=== PATIENT | female | born 1930 | race Caucasian/White ===

== ENCOUNTER 2016-12-02 14:22 | Inpatient (IN) ==
[2016-12-03 06:09] LABS: MANUAL DIFF NEEDED? NO
[2016-12-03 06:10] LABS: BASO% 0.2 % (0.0-0.8); EOS# 0.17 X1000 (0.0-0.7); HEMATOCRIT 30.7 % (37.0-47.0); HEMOGLOBIN 9.8 g/dL (12.0-16.0); IMM GRAN# 0.04 X1000 (0.0-0.04); IMM GRAN% 0.2 % (0.0-0.5); LYMPH# 7.09 X1000 (1.2-3.4); LYMPH% 41.9 % (20.5-51.1); MCH 27.8 PG (27-31); MCHC 31.9 g/dL (33-37); MCV 87.2 FL (81-99); MONO# 1.64 X1000 (0.11-0.59); MONO% 9.7 % (1.7-9.3); PLT 176 X1000 (130-400); RBC 3.52 XMIL (4.2-5.4)
[2016-12-03 06:37] LABS: ALBUMIN 2.9 g/dL (3.5-5.0); CALCIUM 8.2 mg/dL (8.8-10.2); TOTAL BILIRUBIN 0.8 mg/dL (0.20-1.00); TOTAL PROTEIN 4.5 g/dL (6.3-8.3)
[2016-12-03 13:03] LABS: URINE SOURCE CATH
[2016-12-03 13:33] LABS: BILIRUBIN URINE NEGATIVE (NEGATIVE); BLOOD URINE 2+ (NEGATIVE); CLARITY CLEAR (CLEAR); COLOR YELLOW; GLUCOSE URINE NEGATIVE (NEGATIVE); LEUKOCYTES URINE NEGATIVE (NEGATIVE); NITRITE URINE NEGATIVE (NEGATIVE); PROTEIN URINE NEGATIVE (NEGATIVE); URINE MICROSCOPIC NEEDED? YES; UROBILINOGEN URINE NORMAL
[2016-12-03 13:42] LABS: URINE EPITHELIAL CELLS <10 /HPF (<10)
[2016-12-04 07:37] LABS: MANUAL DIFF NEEDED? NO
[2016-12-04 07:48] LABS: BASO% 0.3 % (0.0-0.8); EOS# 0.38 X1000 (0.0-0.7); EOS% 2.5 % (0.0-10.0); HEMATOCRIT 31.2 % (37.0-47.0); HEMOGLOBIN 9.9 g/dL (12.0-16.0); IMM GRAN# 0.05 X1000 (0.0-0.04); IMM GRAN% 0.3 % (0.0-0.5); LYMPH# 7.56 X1000 (1.2-3.4); LYMPH% 49.3 % (20.5-51.1); MCH 27.7 PG (27-31); MCHC 31.7 g/dL (33-37); MCV 87.2 FL (81-99); MONO# 1.44 X1000 (0.11-0.59); MONO% 9.4 % (1.7-9.3); NEUT% 38.2 % (42.2-75.2); PLT 226 X1000 (130-400); RBC 3.58 XMIL (4.2-5.4)
[2016-12-04 07:56] LABS: CALCIUM 8.6 mg/dL (8.8-10.2); POTASSIUM 3.9 mmol/L (3.5-5.1)
[2016-12-05 06:18] LABS: MANUAL DIFF NEEDED? NO
[2016-12-05 06:31] LABS: BASO% 0.2 % (0.0-0.8); EOS# 0.44 X1000 (0.0-0.7); EOS% 3.2 % (0.0-10.0); HEMATOCRIT 31.8 % (37.0-47.0); IMM GRAN# 0.08 X1000 (0.0-0.04); IMM GRAN% 0.6 % (0.0-0.5); LYMPH# 7.38 X1000 (1.2-3.4); LYMPH% 53.4 % (20.5-51.1); MCH 27.5 PG (27-31); MCHC 31.4 g/dL (33-37); MCV 87.6 FL (81-99); MONO# 1.25 X1000 (0.11-0.59); MPV 10.6 FL (7.4-10.4); NEUT% 33.6 % (42.2-75.2); PLT 244 X1000 (130-400); RBC 3.63 XMIL (4.2-5.4)
[2016-12-05 06:35] LABS: CALCIUM 8.9 mg/dL (8.8-10.2); POTASSIUM 3.9 mmol/L (3.5-5.1)
[2016-12-06 06:48] LABS: HEMOGLOBIN 9.7 g/dL (12.0-16.0); MCH 27.4 PG (27-31); MCHC 31.3 g/dL (33-37); MCV 87.6 FL (81-99); MPV 10.5 FL (7.4-10.4); RBC 3.54 XMIL (4.2-5.4)
[2016-12-06 07:15] LABS: AGAP 11; BUN 25 mg/dL (8-22); CHLORIDE 102 mmol/L (98-107); COSMO 282; POTASSIUM 3.9 mmol/L (3.5-5.1); SODIUM 139 mmol/L (136-145); TCO2 26 mmol/L (25-35)
[2016-12-07 06:55] LABS: HEMATOCRIT 34.6 % (37.0-47.0); HEMOGLOBIN 11.2 g/dL (12.0-16.0); MCH 27.9 PG (27-31); MCHC 32.4 g/dL (33-37); MCV 86.3 FL (81-99); MPV 10.1 FL (7.4-10.4); RBC 4.01 XMIL (4.2-5.4)
[2016-12-07 07:04] LABS: AGAP 14; BUN 21 mg/dL (8-22); CALCIUM 9.4 mg/dL (8.8-10.2); CHLORIDE 99 mmol/L (98-107); COSMO 282; POTASSIUM 3.7 mmol/L (3.5-5.1); SODIUM 140 mmol/L (136-145); TCO2 27 mmol/L (25-35)
[2016-12-07 11:56] LABS: URINE CULTURE PL NEEDED? NO; URINE SOURCE CATH
[2016-12-07 11:59] LABS: BILIRUBIN URINE NEGATIVE (NEGATIVE); BLOOD URINE 4+ (NEGATIVE); CLARITY CLEAR (CLEAR); COLOR YELLOW; GLUCOSE URINE NEGATIVE (NEGATIVE); LEUKOCYTES URINE 1+ (NEGATIVE); NITRITE URINE NEGATIVE (NEGATIVE); PROTEIN URINE NEGATIVE (NEGATIVE); SP GRAVITY URINE 1.015; UROBILINOGEN URINE NORMAL
[2016-12-07 12:09] LABS: URINE EPITHELIAL CELLS <10 /HPF (<10); URINE RBC 20-40 /HPF (<10); URINE WBC <10 /HPF (<10)
[2016-12-08 07:53] VITALS: BP 118/44
== END 2016-12-08 12:05 ==
LOC: P.DIRADM 14:22 → P.MEDSURG 14:28
PROVIDERS: ADMIT Internal Medicine; ATTEND Internal Medicine

== ENCOUNTER 2017-03-20 08:39 | Inpatient (IN) ==
[2017-03-20] MEDS ORDERED: NS 500 ML IV ONE (09:16)
[2017-03-20 09:38] LABS: BASO% 0.3 % (0.0-0.8); EOS# 0.22 X1000 (0.0-0.7); EOS% 1.2 % (0.0-10.0); HEMATOCRIT 35.6 % (37.0-47.0); HEMOGLOBIN 11.2 g/dL (12.0-16.0); IMM GRAN# 0.04 X1000 (0.0-0.04); IMM GRAN% 0.2 % (0.0-0.5); LYMPH# 9.63 X1000 (1.2-3.4); LYMPH% 53.5 % (20.5-51.1); MANUAL DIFF NEEDED? NO; MCH 28.4 PG (27-31); MCHC 31.5 g/dL (33-37); MCV 90.4 FL (81-99); MONO# 0.97 X1000 (0.11-0.59); MONO% 5.4 % (1.7-9.3); MPV 11.2 FL (7.4-10.4); NEUT% 39.4 % (42.2-75.2); PLT 220 X1000 (130-400); RBC 3.94 XMIL (4.2-5.4)
--- NOTE | 2017-03-20 09:39 | PROVIDER DOCUMENTATION ---
This chart was entered by Daniel Coker Scribe, acting as scribe for Xu Schmitz MD. HPI-Abdominal Pain/GI Problem - General Source: patient, family - History of Present Illness-ABD Nature of Presenting Problems: patient is a 86 y/o F that presents to the ER with dizziness post bloody bowel movement at 130am. patient denies abdominal pain. Had another BM prior to arrival but had no blood in it. History of Diverticulosis but not Diverticulitis. patient's daughter took her BP post bloody diarrhea BM and it was in the 50s systolic. At 730 this morning it was 80s systolic. No fever/ chills, no chest pain. Patient had some N/V during episode which resolved now. She is on a blood thinner. Pain Radiation: reports: no radiation Quality of Pain: reports: none Severity in ED: reports: moderate Onset/Duration: reports: abrupt, this morning Timing: reports: gone now Activities at Onset: reports: light activity (BM) Modifying Factors: improves with: nothing Associated Symptoms: reports: diarrhea, dizziness, nausea, vomiting, weakness. denies: back/neck pain, chest pain, constipation, fever/chills, genitourinary problems, shortness of breath Last BM: this morning Dark Stools Present?: reports: bright red blood Rectal Bleeding: reports: bloody diarrhea Rectal Pain: reports: none Emesis Description: reports: none Similar Symptoms Previously?: No Recently seen or treated by another doctor?: No <Xu Schmitz - Last Filed: 03/20/17 09:39> <Kyle Lemus - Last Filed: 03/20/17 11:32> - General Chief Complaint: GI Bleed Stated Complaint: BLOOD IN STOOL Time Seen by Provider: 03/20/17 08:57 Allergies/Adverse Reactions: Patient Allergies Allergy/AdvReac Type Severity Reaction Status Date / Time meperidine HCl * Allergy Severe ANAPHYLAXIS Verified 03/20/17 10:29 [From Demerol] promethazine HCl * Allergy Severe ANAPHYLAXIS Verified 03/20/17 10:29 [From Phenergan] levofloxacin [From Levaquin] Allergy HIVES Verified 03/20/17 10:29 Home Medications: Home Medication List Medication Instructions Recorded Confirmed Last Taken Type Potassium Chloride 10 meq PO DIRECTED 06/30/15 03/20/17 03/20/17 07:00 History Sertraline HCl 25 mg PO DAILY 06/30/15 03/20/17 03/20/17 07:00 History Tamsulosin HCl 0.4 mg PO QHS 06/30/15 03/20/17 03/19/17 19:00 History Mirtazapine 7.5 mg PO HS 06/14/16 03/20/17 03/19/17 19:00 History Omeprazole [Prilosec] 20 mg PO DIRECTED 06/14/16 03/20/17 03/20/17 07:00 History Rivaroxaban [Xarelto] 15 mg PO HS 06/14/16 03/20/17 03/19/17 19:00 History Spironolactone 12.5 mg PO DAILY 06/14/16 03/20/17 03/20/17 07:00 History Meloxicam [Mobic] 7.5 mg PO DAILY #7 tablet 11/30/16 03/20/17 03/20/17 07:00 Rx Fluticasone Propionate [Flovent 2 inh INH BID 12/03/16 03/20/17 03/20/17 07:00 History Diskus] Losartan [Cozaar] 50 mg PO DAILY 12/03/16 03/20/17 03/20/17 07:00 History Levalbuterol Neb [Xopenex Neb] 1.25 mg INH TID #90 neb 12/08/16 03/20/17 07:00 Rx Melatonin 3 mg PO HS PRN PRN #30 tablet 12/08/16 03/20/17 03/19/17 19:00 Rx Metoprolol Succinate [Toprol Xl] 25 mg PO DAILY #30 tab.er.24h 12/08/1603/20/17 07:00 Rx Review of Systems - Adult - REVIEW OF SYSTEMS - ADULT Constitutional: denies: chills, fever Eyes: reports: no symptoms reported Ears, Nose, Mouth & Throat: reports: no symptoms reported Cardiovascular: denies: chest pain, orthopnea, palpitations Respiratory: denies: cough, shortness of breath, wheezing Gastrointestinal: reports: diarrhea, nausea, rectal bleeding, vomiting. denies : abdominal pain Genitourinary: denies: dysuria, frequency, hematuria Musculoskeletal: reports: no symptoms reported Integumentary: reports: no symptoms reported Neurological: reports: no symptoms reported Psychiatric: reports: no symptoms reported Endocrine: reports: no symptoms reported Hematologic/Lymphatic: reports: no symptoms reported Allergic/Immunologic: reports: no symptoms reported All Other Systems: Reviewed and Negative <Xu SchmitzKhloe - Last Filed: 03/20/17 09:39> - REVIEW OF SYSTEMS - ADULT Constitutional: denies: chills, fever <Kyle Lemus - Last Filed: 03/20/17 11:32> Past History - Adult - PAST MEDICAL HISTORY-ADULT Review of Records: reports: Old Records Reviewed, Nursing Assessment Review, Medications Reviewed Cardiovascular: reports: A-Fib, HTN Gastrointestinal: reports: diverticulosis Neurological: reports: CVA, stroke deficits (left side weakness), TIA Other Conditions: reports: other cancer (breast) - PRIOR SURGERIES/PROCEDURES Surgical/Procedure History: reports: appendectomy, cholecystectomy, hysterectomy - IMMUNIZATION STATUS Childhood Immunizations: See Nurse Assessment Flu Vaccine: See Nurse Assessment - FAMILY HISTORY Family History: reviewed, not pertinent - SOCIAL HISTORY Smoking: non-smoker Living Situation: family <Xu SchmitzKhloe - Last Filed: 03/20/17 09:39> - PAST MEDICAL HISTORY-ADULT Review of Records: reports: Old Records Reviewed <Kyle Lemus - Last Filed: 03/20/17 11:32> Physical Exam-General - PHYSICAL EXAM-ADULT Initial Vital Signs Reviewed: Yes - CONSTITUTIONAL General Appearance: alert, no apparent distress - EYES Eyes: PERRL/EOMI, pale conjunctivae (slightly) - HEAD, EARS, NOSE, MOUTH & THROAT HENMT: normocephalic/atraumatic, moist mucous membranes, normal ENT inspection - NECK Neck: full range of motion, normal inspection. negative: lymphadenopathy - RESPIRATORY Respiratory: lungs clear, normal breath sounds, no respiratory distress, no accessory muscle use - CARDIOVASCULAR Cardiovascular: regular rate, rhythm, no edema, no murmur - GASTROINTESTINAL (ABDOMEN) Abdominal Exam: normal bowel sounds, non tender, soft, no organomegaly, no pulsatile mass - GENITOURINARY Rectal Exam: blood streaked stool, hemorrhoids (external) - MUSCULOSKELETAL Back Exam: normal inspection, no CVA tenderness Extremity: normal range of motion, normal inspection, no pedal edema, normal capillary refill - SKIN Integumentary: normal color, warm/dry - NEUROLOGIC Neurologic: motor weakness (left sided due to previous CVA). negative: facial droop - PSYCHIATRIC Psych/Mental Status: normal mood/affect, normal thought content, normal thought process, oriented x 3 <Xu Schmitz - Last Filed: 03/20/17 09:39> - PHYSICAL EXAM-ADULT Initial Vital Signs Reviewed: Yes - CONSTITUTIONAL General Appearance: alert <Kyle Lemus - Last Filed: 03/20/17 11:32> Progress - PLAN OF CARE/RESULTS Progress/Plan/Lab Results: Vital Signs - 8 hr 03/20/17 08:46 Temperature 98.3 F Pulse Rate 97 H Respiratory Rate 18 Blood Pressure 109/58 O2 Sat by Pulse Oximetry 97 Orders Category Date Time Status ED: Orthostatic Vital Signs (E as directed Care 03/20/17 08:59 Active Saline Loc DIRECTED Care 03/20/17 08:59 Active NPO Diet 03/20/17 08:59 Active AMYLASE [CHEM] Stat Lab 03/20/17 08:59 Uncollected CBC WITH ELECTRONIC DIFF [HEME] Stat Lab 03/20/17 08:59 Uncollected COMPREHENSIVE METABOLIC PANEL [CHEM] Stat Lab 03/20/17 08:59 Uncollected LIPASE [CHEM] Stat Lab 03/20/17 08:59 Uncollected TYPE & SCREEN [BBK] Stat Lab 03/20/17 08:59 Uncollected URINALYSIS W/POSS RFLX CULT-1 [URINALYSIS] Stat Lab 03/20/17 08:59 Uncollected Result Diagrams: 03/20/17 09:20 <Xu Schmitz - Last Filed: 03/20/17 09:39> - PLAN OF CARE/RESULTS Progress/Plan/Lab Results: Vital Signs - 8 hr 03/20/17 08:46 03/20/17 10:00 03/20/17 10:22 Temperature 98.3 F Pulse Rate 97 H 75 Pulse Rate [Sitting] 90 Pulse Rate [Standing] 99 H Pulse Rate [Supine] 91 H Respiratory Rate 18 20 Blood Pressure 109/58 107/53 Blood Pressure [Sitting] 95/47 Blood Pressure [Standing] 69/40 Blood Pressure [Supine] 96/47 O2 Sat by Pulse Oximetry 97 98 03/20/17 11:00 Temperature Pulse Rate 66 Pulse Rate [Sitting] Pulse Rate [Standing] Pulse Rate [Supine] Respiratory Rate 22 Blood Pressure 119/55 Blood Pressure [Sitting] Blood Pressure [Standing] Blood Pressure [Supine] O2 Sat by Pulse Oximetry 98 03/20/17 09:09 Stool Occult Blood (CARRIE) - Final Stool Laboratory Results - last 24 hr 03/20/17 03/20/17 03/20/17 09:20 09:20 09:20 WBC 18.00 H RBC 3.94 L Hgb 11.2 L Hct 35.6 L MCV 90.4 MCH 28.4 MCHC 31.5 L RDW Std Deviation 15.3 H Plt Count 220 MPV 11.2 H Immature Gran % (Auto) 0.2 Neut % (Auto) 39.4 L Lymph % (Auto) 53.5 H [place] % (Auto) 5.4 Eos % (Auto) 1.2 Baso % (Auto) 0.3 Immature Gran # (Auto) 0.04 Neut # (Auto) 7.08 H Lymph # (Auto) 9.63 H [place] # (Auto) 0.97 H Eos # (Auto) 0.22 Baso # (Auto) 0.06 Sodium 142 Potassium 5.0 Chloride 105 Carbon Dioxide 30 Anion Gap 7 BUN 27 H Creatinine 1.2 H Estimated GFR/1.73 m2 42 BUN/Creatinine Ratio 23 Glucose 107 H Calculated Osmolality 289 Calcium 9.5 Total Bilirubin 0.48 AST 19 ALT 13 Alkaline Phosphatase 79 Total Protein 5.6 L Albumin 3.7 Globulin 1.9 Albumin/Globulin Ratio 1.9 Amylase 54 Lipase 67 H Urine Source Urine Color Urine Turbidity Urine pH Ur Specific [place] Urine Protein Ur Glucose (Stick) Ur Ketones (Stick) Urine Blood Urine Nitrite Urine Bilirubin Urobilinogen Dipstick Urine Leukocytes Urine WBC (Auto) Urine RBC (Auto) U Epithel Cells (Auto) Urine Bacteria (Auto) Blood Type B POSITIVE Antibody Screen NEGATIVE 03/20/17 10:15 WBC RBC Hgb Hct MCV MCH MCHC RDW Std Deviation Plt Count MPV Immature Gran % (Auto) Neut % (Auto) Lymph % (Auto) [place] % (Auto) Eos % (Auto) Baso % (Auto) Immature Gran # (Auto) Neut # (Auto) Lymph # (Auto) [place] # (Auto) Eos # (Auto) Baso # (Auto) Sodium Potassium Chloride Carbon Dioxide Anion Gap BUN Creatinine Estimated GFR/1.73 m2 BUN/Creatinine Ratio Glucose Calculated Osmolality Calcium Total Bilirubin AST ALT Alkaline Phosphatase Total Protein Albumin Globulin Albumin/Globulin Ratio Amylase Lipase Urine Source CATH Urine Color YELLOW Urine Turbidity CLEAR Urine pH 7.0 Ur Specific [place] 1.020 Urine Protein TRACE A Ur Glucose (Stick) NEGATIVE Ur Ketones (Stick) NEGATIVE Urine Blood NEGATIVE Urine Nitrite NEGATIVE Urine Bilirubin NEGATIVE Urobilinogen Dipstick NORMAL Urine Leukocytes NEGATIVE Urine WBC (Auto) <10 Urine RBC (Auto) <10 U Epithel Cells (Auto) <10 Urine Bacteria (Auto) NEGATIVE Blood Type Antibody Screen Orders Category Date Time Status ED: Orthostatic Vital Signs (E as directed Care 03/20/17 08:59 Active Saline Loc DIRECTED Care 03/20/17 08:59 Active NPO Diet 03/20/17 08:59 Active CHEST-PORTABLE [RAD] Stat Exams 03/20/17 11:[address] ABD/PELVIS W/ IV CONT ONLY [CT] Stat Exams 03/20/17 09:16 Completed AMYLASE [CHEM] Stat Lab 03/20/17 09:20 Completed BLOOD CULTURE [BLDCUL] Stat Lab 03/20/17 11:27 Ordered CBC WITH ELECTRONIC DIFF [HEME] Stat Lab 03/20/17 09:20 Completed COMPREHENSIVE METABOLIC PANEL [CHEM] Stat Lab 03/20/17 09:20 Completed LIPASE [CHEM] Stat Lab 03/20/17 09:20 Completed OCCULT BLOOD SCREENING [STOOL] Stat Lab 03/20/17 09:09 Completed TYPE & SCREEN [BBK] Stat Lab 03/20/17 09:20 Completed URINALYSIS W/POSS RFLX CULT-1 [URINALYSIS] Stat Lab 03/20/17 10:15 Completed 0.9% Sodium Chloride Inj [Ns] 500 ml Med 03/20/17 09:16 Discontinued IV 999 mls/hr Result Diagrams: 03/20/17 09:20 03/20/17 09:20 - CT/MRI 1 CT Study: Abdomen, Pelvis Impression: Abnormal CT Results: small left pleural effusion, ext diverticulosis - CONSULTS/PCP/HOSPITALIST Notification #1 *Consult/PCP/Hospitalist*: Jayna SLOAN with hospitalist Time Discussed: 11:31 Consult Disposition: Will see in ED, Admit <Lemus,W. Moose - Last Filed: 03/20/17 11:32> Departure <Xu Schmitz - Last Filed: 03/20/17 09:39> - Departure Date of Disposition Decision: 03/20/17 Time of Disposition Decision: 11:31 Certified Medical Emergency: Emergent - Critical Care Note This patient required my direct & personal management of CC.: No Total Time (mins): 35 Critical Care Statement: This patient required my direct personal management to treat or rule out processes, the absence of which, could potentiallly result in sudden, clinically significant life or limb threatening deterioration. <Kyle Lemus - Last Filed: 03/20/17 11:32> - Departure DIAGNOSIS: Lower GI bleed Disposition: ADMITTED INPATIENT 09 Condition: Stable Referrals and Follow-Ups: Manuel Lutz MD [Primary Care Provider] - Attestation - Physician/ KATIE Attestation The physician spent face to face time with patient:: Yes Advanced Practice Provider documentation review:: Supervising physician onsite and consulted in the evaluation and care of this patient. The physician did have a face to face encounter with the patient. <Xu Schmitz - Last Filed: 03/20/17 09:39> - Physician/ KATIE Attestation The physician spent face to face time with patient:: Yes Advanced Practice Provider documentation review:: Supervising physician onsite and consulted in the evaluation and care of this patient. The physician did have a face to face encounter with the patient. <Kyle Lemus - Last Filed: 03/20/17 11:32> This chart was documented by the indicated scribe, (Daniel Coker, Kulwinder) and accurately reflects the services I performed and decisions made by me, Xu Schmitz MD, as attested by the provider's signature.
[2017-03-20 09:47] LABS: ALBUMIN 3.7 g/dL (3.5-5.0); CALCIUM 9.5 mg/dL (8.8-10.2); TOTAL BILIRUBIN 0.48 mg/dL (0.20-1.00); TOTAL PROTEIN 5.6 g/dL (6.3-8.3)
[2017-03-20 10:27] LABS: URINE CULTURE NEEDED? NO; URINE MICRO REVIEW NEEDED? NO; URINE SOURCE CATH
[2017-03-20 10:35] LABS: BILIRUBIN URINE NEGATIVE (NEGATIVE); BLOOD URINE NEGATIVE (NEGATIVE); COLOR YELLOW; GLUCOSE URINE NEGATIVE (NEGATIVE); LEUKOCYTES URINE NEGATIVE (NEGATIVE); NITRITE URINE NEGATIVE (NEGATIVE); PROTEIN URINE TRACE mg/dL (NEGATIVE); TURBIDITY URINE CLEAR (CLEAR); UROBILINOGEN URINE NORMAL (NORMAL)
[2017-03-20 10:37] LABS: UR EPITHELIAL CELLS <10 /HPF (<10); URINE BACTERIA NEGATIVE /HPF; URINE RBC <10 /HPF (<10); URINE WBC <10 /HPF (<10)
--- NOTE | 2017-03-20 11:13 | Diag Imaging Result Doc PS360 ---
EXAM: CT ABD/PELVIS W/ IV CONT ONLY - 03/20/2017 HISTORY: bleeding h/o diverticulosis on eloquis TECHNIQUE: With intravenous contrast only per request the referring provider. Dose reduction protocol. COMPARISON: 08/05/2013. FINDINGS: There is a small left pleural effusion. There are no acute abnormalities of the liver, spleen, adrenal glands, or pancreas identified. The gallbladder surgically absent. There is a 6.8 x 4.2 cm cyst which arises at the upper left kidney. This is decreased in size from 7.2 x 4.6 cm and the previous exam. There are small right renal cyst. There is no solid appearing renal mass or hydronephrosis identified. There are atherosclerotic calcifications noted. There are lumbar spine degenerative changes noted. There is no evidence of bowel obstruction. There is extensive diverticulosis throughout most of the colon. There is no colonic inflammation or abnormal wall thickening identified. There is no free air, substantial free fluid, or abscess identified. There appears to been previous hysterectomy. There are some enlarged distal external iliac lymph nodes on the right which appears stable to mildly decreased compared to previous exam. There is a borderline right inguinal lymph node which appears to decrease in size. IMPRESSION: Small left pleural effusion. Extensive diverticulosis throughout the colon. No indication of diverticulitis. No free air. No abscess. Right external iliac adenopathy, which appears stable to mildly decreased compared to the previous exam. Borderline right inguinal lymph node which has decreased in size. Electronically signed by Ricardo Woodward 03/20/2017 11:11 AM
--- NOTE | 2017-03-20 11:45 | Diag Imaging Result Doc PS360 ---
EXAM: CHEST-PORTABLE HISTORY: sob/cp TECHNIQUE: Erect AP portable at 1140 COMMENT: Compared to 12/07/2016 the pleural effusions which were present previously have resolved. The atelectasis in the lung bases has also resolved. IMPRESSION: No evidence of acute disease. Electronically signed by Gal Fenton 03/20/2017 11:43 AM
[2017-03-20] MEDS ORDERED: NS 1,000 ML IV ONE (12:15)
[2017-03-20] MEDS: PROTONIX 80 MG in NS 80 ML IV SCH ×2 (12:15→21:05)
[2017-03-20] MEDS ORDERED: MELATONIN PO PRN (12:15)
[2017-03-20] MEDS ORDERED: TYLENOL PO PRN (13:40)
[2017-03-20] MEDS: CARAFATE LIQUID PO SCH ×2 (14:08→20:11)
[2017-03-20] MEDS ORDERED: PNEUMOVAX 23 IM ONE (14:24)
--- NOTE | 2017-03-20 15:25 | HISTORY AND PHYSICAL ---
PRIMARY CARE PROVIDER: Dr. Manuel Lutz CHIEF COMPLAINT: Blood in her stool and lightheadedness. HISTORY OF PRESENT ILLNESS: Ms. Elicia Núñez is an 86-year-old, female with a medical history of chronic lymphocytic leukemia, or CLL, followed by Dr. Mathew, which causes chronic leukocytosis. 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 So, according to the patient, around 1 a.m. she became lightheaded. Went to the bathroom to have a large bloody bowel movement. She did not pass out, but when her daughter checked her blood pressure it was 58/41. She has been complaining of some spells of nausea, but no emesis. Upon presentation to the ER, she had a hemoglobin and hematocrit of 11 and 35 when checked. On her orthostatic vitals, she did become significantly orthostatic with her blood pressure. We will consult Dr. Dunn, as this was her GI specialist in the past. Will admit to [facility] for close observation. PAST MEDICAL HISTORY: Hypertension, atrial fibrillation, CLL, CVA x3, with left hemiparesis, breast cancer and, apparently, sees Dr. Sanchez for her pulmonary. SURGICAL HISTORY: Hysterectomy, appendectomy, cholecystectomy, left breast lumpectomy. FAMILY HISTORY: Positive for heart disease and melanoma in first-degree relatives, along with emphysema. SOCIAL HISTORY: She stays with her daughter. She uses a walker and wheelchair for ambulation. She gets physical therapy at her house twice a week. She denies tobacco, alcohol, or illicit drug use. ALLERGIES: Demerol, Phenergan and Levaquin. HOME MEDICATIONS: Fluticasone inhaled twice daily, Xopenex inhaled 3 times daily, Cozaar 50 mg p.o. daily, melatonin 3 mg p.o. nightly p.r.n., Mobic 7.5 mg p.o. daily, Toprol- XL 25 mg p.o. daily, mirtazapine 7.5 mg p.o. nightly, Prilosec 20 mg p.o. as directed, potassium chloride extended-release 10 mEq p.o. as directed, Xarelto 15 mg p.o. nightly, sertraline 25 mg p.o. daily, spironolactone 12.5 mg p.o. daily, tamsulosin 0.4 mg p.o. nightly. REVIEW OF SYSTEMS: Fourteen-point review of systems were complete and all were negative, except for those mentioned above HPI. She denied any abdominal cramping. She did have some lightheadedness and dizziness. Complained of nausea. Also complained of blood in her stool, and low blood pressure. PHYSICAL EXAMINATION: VITAL SIGNS: Temperature of. 98.3, heart rate 80, respiratory rate 18, blood pressure 111/55, O2 saturation 95% on room air. ORTHOSTATIC VITAL SIGNS: Supine - heart rate 91, blood pressure 96/47. Sitting - heart rate 90, blood pressure 95/47. Standing - heart rate 99, blood pressure 69/40. GENERAL: Ms. Elicia Núñez is an 86-year-old female. She is in no acute distress. She is able answer questions appropriately. HEENT: Atraumatic, normocephalic. Pupils equal, round, reactive to light. Extraocular movements intact. Mucous membranes are dry. NECK: Trachea midline. CARDIOVASCULAR: Irregularly irregular rate and rhythm. No rubs, gallops, murmurs. No JVD. No carotid bruits. There are +2 dorsalis and radial pulses. No edema noted. PULMONARY: Clear to auscultation. Bilateral breath sounds. No accessory muscle use or work of breathing noted. GASTROINTESTINAL: Soft, nontender, nondistended. Positive bowel sounds x4. EXTREMITIES: The left hemiparesis is noted. Very weak. Wears a boot and a left arm brace. About 4.5/5 strength in the right upper and lower extremity. NEUROLOGIC: Alert and oriented x4. SKIN: Warm, dry, intact. LABORATORY DATA: White blood cells 18,000, hemoglobin 11, hematocrit 35, platelet count 220,000. Sodium 142, potassium 5.0, BUN 27, creatinine is 1.2, glucose 107, calcium 9.5, bilirubin 0.4, AST 19, ALT 13, albumin 3.7, amylase 54, lipase 67. Trace protein in the urine. IMAGING: Chest x-ray: No evidence of acute disease. Abdominal and pelvic CT: Shows a small left pleural effusion. No evidence of bowel obstruction. There is extensive diverticulosis throughout most of the colon, but no inflammation or thickening. No free air or abscess. ASSESSMENT AND PLAN: 1. Lower gastrointestinal bleed. The daughter had taken a picture of the stool and it was definitely a toilet full of bright-red blood. That apparently started at 1 a.m. this morning. She does have orthostatic hypotension with it. We will admit to the [facility]. Will do serial hemoglobin and hematocrit, transfuse for less than 8. Consult Dr. Dunn with Gastroenterology. Protonix drip and Carafate. 2. Acute blood loss anemia. Again, we will transfuse if drops less than 8. 3. Hypertension, now with orthostatic hypotension. We will consider holding all her antihypertensive until she stabilizes. 4. Atrial fibrillation. We will hold her Xarelto. Will hold her Mobic for now. 5. Deep venous thrombosis prophylaxis. Sequential compression devices. 6. Gastrointestinal prophylaxis. We will continue with Carafate orally q.6 hours and a Protonix drip. Dictated by NATHALIA Siddiqui for Soto Dos Santos MD cc: NATHALIA Siddiqui MD Kirk L. Jackson, MD pt examined, face to face, has normal abdominal exam , nontender, likely lower diverticular bleed, will follow h/h and continue protonix gtt, had long discussion with daughter, about taking her off xarelto and the risks included APENOT MTDD
[2017-03-20 15:57] LABS: HEMATOCRIT 32.7 % (37.0-47.0); HEMOGLOBIN 10.2 g/dL (12.0-16.0)
[2017-03-20] MEDS: XOPENEX NEB INH SCH ×2 (16:22→21:25)
[2017-03-20 16:49] LABS: HEMATOCRIT 29.5 % (37.0-47.0); HEMOGLOBIN 9.3 g/dL (12.0-16.0)
[2017-03-20 18:03] LABS: INR 1.28; PROTIME 13.7 Seconds (9.2-11.7); PTT 30.8 Seconds (22.0-36.0)
[2017-03-20 19:41] LABS: HEMATOCRIT 26.6 % (37.0-47.0); HEMOGLOBIN 8.2 g/dL (12.0-16.0)
[2017-03-20] MEDS: FLOMAX PO SCH (21:05)
[2017-03-20] MEDS: REMERON PO SCH (21:05)
[2017-03-20] MEDS: PATIENT'S OWN MED INH SCH (21:06)
[2017-03-20 22:03] LABS: HEMATOCRIT 25.1 % (37.0-47.0); HEMOGLOBIN 7.9 g/dL (12.0-16.0)
[2017-03-21] MEDS: CARAFATE LIQUID PO SCH ×4 (01:49→20:36)
[2017-03-21 03:19] LABS: BASO% 0.4 % (0.0-0.8); EOS# 0.59 X1000 (0.0-0.7); EOS% 3.6 % (0.0-10.0); HEMATOCRIT 24.9 % (37.0-47.0); HEMOGLOBIN 7.8 g/dL (12.0-16.0); IMM GRAN# 0.04 X1000 (0.0-0.04); IMM GRAN% 0.2 % (0.0-0.5); LYMPH# 11.41 X1000 (1.2-3.4); LYMPH% 69.2 % (20.5-51.1); MANUAL DIFF NEEDED? YES; MCH 28.6 PG (27-31); MCHC 31.3 g/dL (33-37); MCV 91.2 FL (81-99); MONO% 6.7 % (1.7-9.3); MPV 10.6 FL (7.4-10.4); NEUT% 19.9 % (42.2-75.2); PLT 170 X1000 (130-400); RBC 2.73 XMIL (4.2-5.4)
[2017-03-21 03:40] LABS: AGAP 7; ALBUMIN 2.6 g/dL (3.5-5.0); ALKALINE PHOSPHATASE 57 U/L (32-104); BUN 26 mg/dL (8-22); CALCIUM 8.2 mg/dL (8.8-10.2); CHLORIDE 108 mmol/L (98-107); COSMO 284; GOT 14 U/L (10-30); GPT 9 U/L (10-36); MAGNESIUM 1.7 mg/dL (1.5-2.7); POTASSIUM 4.4 mmol/L (3.5-5.1); SODIUM 140 mmol/L (136-145); TCO2 25 mmol/L (25-35); TOTAL BILIRUBIN 0.42 mg/dL (0.20-1.00); TOTAL PROTEIN 4.3 g/dL (6.3-8.3)
[2017-03-21 03:53] LABS: EOS 6 % (1-10); LYMPHS 54 % (21-51)
[2017-03-21] MEDS: PROTONIX 80 MG in NS 80 ML IV SCH ×2 (07:18→18:10)
[2017-03-21] MEDS: ZOLOFT PO SCH (08:55)
[2017-03-21] MEDS ORDERED: ALDACTONE PO SCH (09:00)
[2017-03-21] MEDS: PATIENT'S OWN MED INH SCH ×2 (09:00→20:38)
[2017-03-21] MEDS ORDERED: TOPROL XL PO SCH (09:00)
[2017-03-21] MEDS: XOPENEX NEB INH SCH ×3 (09:08→20:04)
[2017-03-21] MEDS ORDERED: NS 500 ML ONE (09:57)
[2017-03-21 10:02] LABS: HEMATOCRIT 24.9 % (37.0-47.0); HEMOGLOBIN 7.7 g/dL (12.0-16.0)
--- NOTE | 2017-03-21 11:15 | CONSULTATION ---
DATE OF CONSULTATION: 03/20/2017 REASON FOR REFERRAL: Rectal bleeding. HISTORY OF PRESENT ILLNESS: This is an 86-year-old white female, who reports onset of rectal bleeding, bright red this morning. It was not associated with abdominal pain. She did report some weakness and lightheadedness. She reports having a poor appetite lately. She has not been eating as much as usual. She denies constipation or diarrhea. PAST MEDICAL HISTORY: Hypertension, atrial fibrillation on Xarelto, chronic lymphocytic leukemia followed by Dr. Mathew, history of CVA with left hemiparesis, history of breast cancer. PAST SURGICAL HISTORY: Hysterectomy, appendectomy, cholecystectomy, left breast lumpectomy. ALLERGIES: To Demerol causing anaphylaxis, Phenergan causing anaphylaxis, Levaquin causing hives. HOME MEDICATIONS: Tamsulosin 0.4 mg every night, spironolactone 12.5 daily, sertraline 25 mg daily, Xarelto 15 mg at night, potassium 10 mEq as directed, Prilosec 20 mg as directed, mirtazapine 7.5 mg every night, metoprolol 25 mg daily, Mobic 7.5 mg daily, melatonin 3 mg at night as needed, Cozaar 50 mg daily, Xopenex inhaler 3 times a day, Flovent inhaler twice a day. SOCIAL HISTORY: She lives with her daughter. No reported tobacco or alcohol use. FAMILY HISTORY: Positive for heart disease, melanoma, emphysema. REVIEW OF SYSTEMS: Per HPI. PHYSICAL EXAM: Vital Signs: Temperature 98.5 degrees, pulse 67, respirations 16, blood pressure 131/58. Generally: Patient is awake, alert, no acute distress. HEENT: Normocephalic, atraumatic. Pupils equal, round, reactive to light. Sclerae nonicteric. Respiratory: Lung sounds essentially clear bilaterally. Cardiovascular: Irregular rate and rhythm. History of atrial fibrillation on Xarelto. Gastrointestinal: Abdomen is soft, nontender , positive bowel sounds. Extremities: No lower extremity edema noted. Left hemiparesis noted. DIAGNOSTIC RESULTS: Laboratory 03/20/2017: Hematology - WBC 18.0, hemoglobin 8.2, hematocrit 26.6, MCV 90.4, platelets 228,000. Coagulation: PT 13.7, INR 1.28, PTT 30.8. Chemistry: Sodium 142, potassium 5.0, chloride 105, CO2 30, BUN 27, creatinine 1.2, glucose 107, calcium 9.5. Total bilirubin 0.48, AST 19, ALT 13, alkaline phosphatase 79, amylase 54, lipase 67. Abdominal-pelvis CT scan showed small left pleural effusion, extensive diverticulosis with no evidence of diverticulitis. ASSESSMENT AND PLAN: 1. Rectal bleeding. 2. Anemia. 3. Diverticulosis with no evidence of diverticulitis by CT scan. 4. Atrial fibrillation on Xarelto. She also takes Mobic for arthritis. Those have both been held. Continue to monitor hemoglobin and hematocrit. Monitor for active bleeding. Continue Protonix and Carafate. We will plan for EGD and colonoscopy once she has been off of Xarelto for the appropriate time. Further plans to be made according to findings. Dr. Dunn has also seen and examined the patient. Further plans to be made by him. Patient and daughter voiced understanding of the plan. Thank you for this consultation. Dictated by NATHALIA Griffin for Ezra Dunn MD cc: NATHALIA Lebron MD [facility]
--- NOTE | 2017-03-21 12:35 | PROGRESS NOTE ---
DATE: 03/21/2017 SUBJECTIVE: The patient denies any active bleeding. She does report some fatigue and lightheadedness. OBJECTIVE: Vital Signs: Temperature 98.3 degrees, pulse 88, respirations 22, blood pressure 102/47. General: Patient is awake, alert, no acute distress. HEENT: Normocephalic, atraumatic. Pupils equal, round, reactive to light. Sclerae nonicteric. Cardiovascular: Irregular rate. Respiratory: Lung sounds clear bilaterally. Abdomen: Soft, nontender. Positive bowel sounds. DIAGNOSTIC RESULTS/LABORATORY: Hematology: White count 16.49, hemoglobin 7.8, hematocrit 24.9, MCV 91.2, platelet 170,000. Chemistry: Sodium 140, potassium 4.4, chloride 108, CO2 25, BUN 26, creatinine 0.8, glucose 94, total bilirubin 0.42, AST 14, ALT 9, alkaline phosphatase 57. ASSESSMENT AND PLAN: 1. Rectal bleeding. 2. Anemia. 3. Atrial fibrillation. Xarelto has been held. Mobic has also been held. Will continue to monitor for active bleeding. Monitor hemoglobin and hematocrit. She is receiving 1 unit of packed red blood cells. Transfuse further units as needed. We will plan for EGD and colonoscopy most likely on . Her last dose of Xarelto was Monday night. We will continue to follow and further plans will be made as needed. I have discussed this case with Dr. Dunn. Dictated by NATHALIA Griffin for Ezra Dunn MD cc: NATHALIA Lebron MD
[2017-03-21 15:52] LABS: HEMATOCRIT 28.9 % (37.0-47.0); HEMOGLOBIN 9.2 g/dL (12.0-16.0)
[2017-03-21] MEDS ORDERED: NS 1,000 ML IV ONE (18:48)
--- NOTE | 2017-03-21 19:06 | PROGRESS NOTE ---
DATE: 03/21/2017 SUBJECTIVE: Patient is doing okay. She is having some bleeding episodes still. Her hemoglobin and hematocrit did drop this morning. OBJECTIVE DATA: Vital signs: Blood pressure is 107/54, heart rate of 80, respiratory rate 16, temperature 97.6, 97% on room air. Cardiovascular: Regular rate and rhythm. Pulmonary: Bilateral breath sounds. Clear to auscultation. GI: Soft, nontender, nondistended. Bowel sounds are positive. LABORATORY DATA: Hemoglobin and hematocrit dropped to a kendra of 7.7 and 24.9. Chemistries look okay. Albumin low at 2.6. PROBLEM LIST: 1. Gastrointestinal bleed possibly lower gastrointestinal bleed, diverticular. We will follow hemoglobin and hematocrit. We will go ahead and transfuse 1 unit. Her coagulation profile was not really significantly altered and I am not going to pursue fresh frozen plasma at this point, unless she continues to drop. Her Xarelto has been discontinued. Dr. Dunn I think is planning for EGD/colon on the to give a chance, I am assuming, for the Xarelto to be completely out of her system. 2. Acute blood-loss anemia. Again, we are transfusing. Try to keep her above 8 and 24. 3. Hypertension. Appears to be stable. We are going to hold her medications obviously because of transient low blood pressures. 4. Atrial fibrillation. She appears to be rate controlled. I think it would be prudent to keep her on at least low-dose rate controlling medications even though her blood pressure is low just to prevent atrial fibrillation. DISPOSITION: Pending her clinical status. cc: Soto Dos Santos MD
[2017-03-21] MEDS: FLOMAX PO SCH (20:36)
[2017-03-21] MEDS: LOPRESSOR PO SCH (20:36)
[2017-03-21] MEDS: REMERON PO SCH (20:37)
[2017-03-21 21:24] LABS: HEMATOCRIT 27.6 % (37.0-47.0); HEMOGLOBIN 8.8 g/dL (12.0-16.0)
[2017-03-22] MEDS: CARAFATE LIQUID PO SCH ×4 (01:30→20:18)
[2017-03-22 05:45] LABS: HEMATOCRIT 29.8 % (37.0-47.0); HEMOGLOBIN 9.3 g/dL (12.0-16.0); MCH 28.8 PG (27-31); MCHC 31.2 g/dL (33-37); MCV 92.3 FL (81-99); RBC 3.23 XMIL (4.2-5.4)
[2017-03-22] MEDS: ZOLOFT PO SCH (08:47)
[2017-03-22] MEDS: LOPRESSOR PO SCH (08:47)
[2017-03-22] MEDS: PROTONIX 80 MG in NS 80 ML IV SCH ×3 (08:48→23:40)
[2017-03-22] MEDS: PATIENT'S OWN MED INH SCH ×2 (09:00→20:20)
[2017-03-22] MEDS: XOPENEX NEB INH SCH ×3 (09:13→19:40)
[2017-03-22] MEDS ORDERED: GOLYTELY PO ONE (14:00)
[2017-03-22] MEDS ORDERED: CALMOSEPTINE OINTMENT TOP PRN (14:29)
--- NOTE | 2017-03-22 14:37 | PROGRESS NOTE ---
DATE: 03/22/2017 SUBJECTIVE: Patient looks a little bit brighter today. She is still having some, I would not say bleeding, as much as just blood when wiping. It is bright red blood. No abdominal pain. No nausea or vomiting. OBJECTIVE: Vital signs: Blood pressure 129/59, heart rate is 68, respiratory rate is 16, temperature 97.6 degrees, 96% on room air. Cardiovascular: Regular rate and rhythm. Pulmonary: Bilateral breath sounds. Clear to auscultation. GI: Soft, nontender, nondistended. Bowel sounds are positive. LABORATORY DATA: White count 12, hemoglobin and hematocrit 9 and 29, platelets 145. Chemistries looked okay. PROBLEM LIST: 1. Gastrointestinal bleed, likely diverticular. Hemoglobin and hematocrit has stabilized after transfusion yesterday, but she is still having some bleeding. I think I am going to go ahead and give her the FFP, although not absolutely indicated just as this with her mild coagulopathy related to Xarelto. Dr. Dunn planning EGD and colon tomorrow. 2. Anemia acute blood loss. Hemoglobin and hematocrit is stable. We will continue to monitor. 3. Hypertension. Continue to monitor off her blood pressure medications as her blood pressure is marginal. 4. Atrial fibrillation. I am going to keep her Lopressor going. I think her heart rate has basically been stable. We may be able to the bump up the Lopressor a little bit now that her blood pressure has come up. She usually is on Toprol 25, so I am going to continue that. DISPOSITION: Pending her multiple issues, we will continue to follow. cc: Soto Dos Santos MD
--- NOTE | 2017-03-22 14:55 | PROGRESS NOTE ---
DATE: 03/22/2017 SUBJECTIVE: Patient reports having some small amount of bleeding especially when she wipes. Hemoglobin and hematocrit today are 9.3 and 29.8. She is starting her colon prep for colonoscopy tomorrow. She is also having an EGD. Her daughter is at the bedside. OBJECTIVE: Vital signs: Temperature 97.6 degrees, pulse 68, respirations 16, blood pressure 129/59. General: The patient is awake and alert, in no acute distress. Respiratory: Lung sounds essentially clear. Abdomen: Soft. Positive bowel sounds. Nontender. LABORATORY: Hematology: White count 12.62, hemoglobin 9.3, hematocrit 29.8, MCV 92.3, platelet 145,000. Chemistry: Sodium 140, potassium 4.4, chloride 108, CO2 25, BUN 26, creatinine 0.8, glucose 94, calcium 8.2, total bilirubin 0.42, AST 14, ALT 9, alkaline phosphatase 57. ASSESSMENT AND PLAN: 1. Rectal bleeding. 2. Anemia. 3. Atrial fibrillation on chronic anticoagulation, Xarelto has been held. Continue to monitor hemoglobin and hematocrit. Monitor for active bleeding. Transfuse further packed red blood cells as needed. 4. We will proceed with an EGD and colonoscopy tomorrow. Further plans to be made according to findings. I have discussed the procedure along with benefits and risks with the patient and she voices understanding along with their daughter and wishes to proceed. Further plans will be made by Dr. Dunn. Dictated by NATHALIA Griffin for Ezra Dunn MD cc: NATHALIA Lebron MD
[2017-03-22 18:01] LABS: HEMATOCRIT 30.5 % (37.0-47.0); HEMOGLOBIN 9.7 g/dL (12.0-16.0)
[2017-03-22] MEDS: TOPROL XL PO SCH (20:07)
[2017-03-22] MEDS: REMERON PO SCH (20:18)
[2017-03-22] MEDS: FLOMAX PO SCH (20:18)
[2017-03-22] MEDS ORDERED: EPINEPHRINE SYRINGE ONE (21:12)
[2017-03-22] MEDS ORDERED: NS ONE (21:12)
[2017-03-22] MEDS ORDERED: NS 1,000 ML ONE (21:13)
[2017-03-22] MEDS: ZOFRAN IV PRN (21:15)
[2017-03-22] MEDS: NS 250 ML IV SCH ×2 (21:20→23:42)
[2017-03-22] MEDS: NS 500 ML IV SCH (21:45)
[2017-03-22] MEDS ORDERED: NS 1,000 ML IV SCH (21:54)
[2017-03-22 21:56] LABS: HEMATOCRIT 26.7 % (37.0-47.0); HEMOGLOBIN 8.4 g/dL (12.0-16.0); MCH 28.4 PG (27-31); MCHC 31.5 g/dL (33-37); MCV 90.2 FL (81-99); MPV 10.9 FL (7.4-10.4); RBC 2.96 XMIL (4.2-5.4)
[2017-03-22] MEDS ORDERED: LEVOPHED 8 MG in D5 1/2 NS 250 ML IV SCH (22:00)
[2017-03-22 22:34] LABS: INR 1.1; PROTIME 11.6 Seconds (9.2-11.7)
--- NOTE | 2017-03-22 22:50 | PROGRESS NOTE ---
DATE: 03/22/2017 PRIMARY HOSPITALIST: Shailesh Dos Santos M.D. PRIMARY CARE PROVIDER: Manuel Lutz M.D. PRIMARY MORTGAGE PROTECTION SPECIALIST: Ezra Dunn M.D. SUBJECTIVE: I was called to the bedside to see Ms. Núñez due to the acute onset of rectal bleeding during her bowel prep for EGD and colonoscopy in the morning by Dr. Ezra Dunn. The patient states that she feels lightheaded, with nausea. She had an episode of emesis and mostly bowel prep. However, she has had at least 6 bowel movements of bright red blood with clots. She denies abdominal pain, fever, and chills. She notes lightheadedness and dizziness. PHYSICAL EXAMINATION: Vital Signs: Her blood pressure is 85/43, pulse of 135, respirations are 21, oxygen saturation is 98% on room air. Pulmonary: Lungs are clear to auscultation, with normal respiratory effort. Cardiovascular: Reveals an irregularly irregular tachycardia, with no murmurs, or rubs. Abdominal: Reveals normoactive bowel sounds to hyperactive bowel sounds. The abdomen is soft and nontender. Extremities: Remarkable for left upper extremity paralysis. Extremities bilaterally are negative for cyanosis, clubbing, or edema. OBJECTIVE DATA: Hemoglobin of 9.3, with hematocrit of 29.8, and a white count of 12.62 at 0515 today. She has 145,000 platelets. Repeat CBC at 2140 is remarkable for a hemoglobin of 8.4, with hematocrit of 26.7, and a white count of 13.56, and 164,000 platelets. IMPRESSION: 1. Acute gastrointestinal bleeding, likely diverticular bleed. 2. Hypotension. 3. Atrial fibrillation, with tachycardia. RECOMMENDATION: 1. The patient received a bolus of normal saline. She initially received 250 mL. Her blood pressure improved to the low 100s. She received a 2nd bolus of fluid, with an increase in her blood pressure to a systolic of 124, and a heart rate of 95-100. 2. The patient continues to have lower gastrointestinal bleeding. However, her blood pressure is intermittently labile. 3. I will administer 2 units of FFP and transfuse with 1 unit of packed red blood cells immediately. 4. We will repeat her CBC and check a PT/INR after transfusion. 5. Once her blood pressure stabilizes, she will need to have an EGD and colonoscopy. 6. Dr. Smiley is aware of the acute onset of bleeding, as well as her transient hypotension. Unfortunately, there are no ICU beds, and she is unable to receive Lopressor here in the [facility]. The family is reluctant to move the patient to the emergency room for pressor support, unless her blood pressure drops again. 7. Therefore, the nurse is administering close one-on-one nursing care and management of her hemodynamics. If her blood pressure drops again, we will plan to transfer her to the emergency room and start Levophed for blood pressure control. Once she stabilizes, the plan is to perform urgent endoscopic therapy. cc: MD Soto Jeronimo MD Kirk L. Jackson, MD Khurshid Yousuf, MD MTDD
[2017-03-22 23:51] LABS: AGAP 16; BUN 11 mg/dL (8-22); CALCIUM 7.5 mg/dL (8.8-10.2); CHLORIDE 110 mmol/L (98-107); COSMO 294; POTASSIUM 3.6 mmol/L (3.5-5.1); SODIUM 148 mmol/L (136-145); TCO2 22 mmol/L (25-35)
[2017-03-23] MEDS: NS 500 ML IV SCH ×2 (00:11→00:12)
[2017-03-23 00:28] LABS: HEMATOCRIT 18.8 % (37.0-47.0); HEMOGLOBIN 5.9 g/dL (12.0-16.0); MCH 27.4 PG (27-31); MCHC 31.4 g/dL (33-37); MCV 87.4 FL (81-99); RBC 2.15 XMIL (4.2-5.4)
[2017-03-23] MEDS ORDERED: NS 250 ML IV SCH (01:58)
[2017-03-23] MEDS ORDERED: FENTANYL ONE ×2 (02:22→03:18)
[2017-03-23] MEDS ORDERED: DIPRIVAN 1% ONE ×3 (02:22→10:09)
[2017-03-23] MEDS: CARAFATE LIQUID PO SCH ×4 (03:00→20:09)
[2017-03-23] MEDS ORDERED: ZOFRAN ONE (03:31)
[2017-03-23 03:35] LABS: HEMATOCRIT 28.2 % (37.0-47.0); HEMOGLOBIN 9.2 g/dL (12.0-16.0)
--- NOTE | 2017-03-23 04:41 | OPERATIVE NOTE ---
PROCEDURE DATE: 03/23/2017 REFERRING PHYSICIAN: Soto Dos Santos M.D. PRIMARY CARE PHYSICIAN: Manuel Lutz M.D. PRIMARY SHRUB GROWER: Ezra Dunn M.D. INDICATION FOR PROCEDURE: Hematochezia. PROCEDURE PERFORMED: Colonoscopy, incomplete. CONSENT: Informed consent was obtained from the patient and her daughter prior to the procedure. The risks, benefits, and alternatives were reviewed. PERFORMING PHYSICIAN: Latoya Valdivia M.D. ASSISTANTS: 1. [facility] 2. Jayashree Jo RN. 3. Patricia Bee CRNA. 4. Carlos Serrano M.D. (Anesthesia) COMPLICATIONS: There were no procedure related complications. The procedure was incomplete due to copious amounts of blood at 60 cm as well as a redundant sigmoid and descending colon. ESTIMATED BLOOD LOSS: There was no blood loss related to the procedure. Several 100 mL of blood and clots were evacuated from the colon during the procedure. FINDINGS: After the esophagogastroduodenoscopy was performed, the pediatric colonoscope was inserted to approximately 60 cm. In the colonic lumen, there was copious amounts of blood and extensive diverticulosis. Visualization of the transverse colon in the distance was remarkable for copious amounts of blood and clots. The exam was terminated at 60 cm due to poor visibility. Upon withdrawal, there was extensive diverticulosis, but no active bleeding. In the rectum, there appeared to be internal hemorrhoids, Grade 2. On retroflexed view, there were large external hemorrhoids. After the exam was complete, the lumen was decompressed and the scope was removed without incident. IMPRESSION: 1. Active lower gastrointestinal bleeding, likely diverticular. 2. Redundant colon. 3. Extensive diverticulosis. 4. Grade 2 internal hemorrhoids. 5. Large external hemorrhoids. RECOMMENDATION: 1. Continue IV fluids. 2. Continue monitoring hemoglobin and hematocrit. Transfuse as indicated. 3. One can consider repeat attempt at colonoscopy if she rebleeds. I will defer to Dr. Ezra Dunn regarding this decision. 4. A bleeding scan has been ordered, in the event that she has active rebleeding. 5. Surgical consultation with Dr. Tremayne Christianson has also been ordered. 6. Additional recommendations to be based on her clinical course. cc: MD Soto Jeronimo MD Kirk L. Jackson, MD Khurshid Yousuf, MD MTDD
--- NOTE | 2017-03-23 04:42 | PROGRESS NOTE ---
DATE: 03/23/2017 SUBJECTIVE: I was called to the unit at approximately 12:30 for recurrent GI bleeding. The patient passed copious amounts of blood per rectum. Her hemoglobin dropped to 5.9. Therefore, we will plan to attempt endoscopic intervention to determine the source of bleeding. Based on review of the records, I will plan to perform an esophagogastroduodenoscopy and colonoscopy under conscious sedation. The team has been notified and are en route. cc: MD Ezra Jeronimo MD Alexis R. Penot, MD Kirk L. Jackson, MD
--- NOTE | 2017-03-23 04:49 | OPERATIVE NOTE ---
PROCEDURE DATE: 03/23/2017 INDICATION FOR PROCEDURE: 1. Nausea with vomiting. 2. Hematochezia. PROCEDURE PERFORMED: Esophagogastroduodenoscopy. CONSENT: Informed consent was obtained from the patient and her daughter prior to the procedure. The risks, benefits, and alternatives were discussed. MEDICATION: The patient received monitored anesthesia care. REFERRING PHYSICIAN: Soto Dos Santos M.D. PRIMARY CARE PROVIDER: Manuel Lutz M.D. PRIMARY CRM MARKETING EXECUTIVE: Ezra Dunn M.D. PERFORMING PHYSICIAN: Latoya Valdivia M.D. ASSISTANTS: 1. [facility] 2. Jayashree Jo RN. 3. Patricia Bee CRNA. 4. Carlos Serrano M.D. (anesthesia). COMPLICATIONS: There were no complications. ESTIMATED BLOOD LOSS: None. SPECIMENS REMOVED: None. FINDINGS: After sedation was achieved, the upper endoscope was inserted to the 2nd portion of the duodenum. The hypopharynx appeared normal. The tubular esophagus appeared normal. There were no varices or Brewster's esophagus. There was a Schatzki's ring at the GE junction which was measured at 40 cm from the incisors. There was a hiatal hernia that spanned from 40-45 cm from the incisors. There was nonerosive gastritis in the stomach. There was clear bilious colored secretions in the gastric lumen, notably in the fundus and the body. More than 300 mL of fluid was evacuated. On retroflexed view, there were nonbleeding AVMs in the cardia and the upper body. There were no gastric varices appreciated. On forward view, the pylorus appeared normal. The 1st and 2nd portions of the duodenum also appeared normal. After the exam was complete, lumen was decompressed and the scope was removed without incident. IMPRESSION: 1. Schatzki's ring. 2. Hiatal hernia. 3. Nonerosive gastritis. 4. Gastric stasis. 5. Nonbleeding gastric arteriovenous malformations. 6. Normal duodenum. RECOMMENDATION: 1. There was no active bleeding on the upper endoscopy. 2. I will proceed with a colonoscopy to determine the source of bleeding. 3. One can consider obtaining a gastric emptying study given that the patient had gastric stasis on EGD. 4. Continue supportive care for active GI bleeding. cc: MD Soto Jeronimo MD Kirk L. Jackson, MD Khurshid Yousuf, MD MTDD
[2017-03-23] MEDS ORDERED: LASIX ONE (04:52)
[2017-03-23] MEDS ORDERED: DUONEB (A & A) INH ONE (04:52)
[2017-03-23] MEDS ORDERED: LASIX IV ONE (04:54)
[2017-03-23 05:01] LABS: BLOOD TYPE ARTERIAL; SAMPLE BLOOD; pH(98.6) 7.27 (7.35-7.45)
[2017-03-23 05:02] LABS: BE -3.8 mmoll (-3.0-3.0); O2(CT) 16.6 mL/dL (15.0-23.0); PO2(98.6) 390 mmHg (60-100); SAO2 99.8 % (95.0-100.0); THB 11.3 g/dL (11.5-17.4)
[2017-03-23 05:03] LABS: ALLEN TEST YES; DRAW SITE R RADIAL; MODALITY NRB; PCO2(98.6) 51 mmHg (35-45)
[2017-03-23] MEDS: ZOSYN 3.375 GM in NS 50 ML IV SCH ×4 (05:12→22:05)
--- NOTE | 2017-03-23 05:29 | PROGRESS NOTE ---
DATE: 03/23/2017 SUBJECTIVE: I was called back to the patient's bedside urgently by the ICU nursing staff. The patient had an episode where she began coughing and became choked. Her oxygen saturation dropped to 60%, requiring Ambu bag resuscitation. She experienced a full recovery and is currently receiving 100% oxygen on a non-rebreather. The patient states that she felt a tickle in her throat and then began to cough. Following the coughing, she became short of breath and could not breathe. She had a similar episode earlier this evening following on nausea with vomiting but it lasted just for a few moments. Currently, she denies chest pain, shortness of breath, nausea, or vomiting. She denies heartburn and indigestion. Her current oxygen saturation is 100% on a 100% non-rebreather. During the episode of hypoxia, her blood pressure decreased to 78/67 with a respiratory rate of 15. Currently, her blood pressure is 130/95 with a pulse of 85-95. She is sitting up and conversing with her daughter. OBJECTIVE: Pulmonary: Lungs are clear anteriorly. She has decreased breath sounds in the bases posteriorly. Cardiovascular: Reveals irregularly irregular rhythm with no gallops or rubs. Abdomen: Reveals normoactive bowel sounds. The abdomen is soft and nontender. RECOMMENDATION: 1. I spoke with Dr. Smiley,. Both of us are concerned about fluid overload. She was administered a dose of Lasix 40 mg IV x1 now. In addition, she received a nebulizer treatment for maximizing her oxygen delivery. 2. Because she recently had an EGD and has had recurrent nausea with vomiting over the last 24 hours, I will administer a dose of Zosyn 3.375 mg and begin dosing every 6 hours for possible aspiration. 3. We will obtain a stat chest x-ray. 4. We will check an arterial blood gas. 5. Additional recommendations to follow based on her clinical course. cc: MD Soto Jeronimo MD Khurshid Yousuf, MD Kirk L. Jackson, MD MTDD
[2017-03-23 05:30] LABS: HEMATOCRIT 32.9 % (37.0-47.0); HEMOGLOBIN 10.9 g/dL (12.0-16.0); MCH 29.1 PG (27-31); MCHC 33.1 g/dL (33-37); MCV 87.7 FL (81-99); MPV 10.8 FL (7.4-10.4); RBC 3.75 XMIL (4.2-5.4)
[2017-03-23 05:41] LABS: AGAP 13; BUN 10 mg/dL (8-22); CALCIUM 7.6 mg/dL (8.8-10.2); CHLORIDE 113 mmol/L (98-107); COSMO 295; POTASSIUM 3.6 mmol/L (3.5-5.1); SODIUM 148 mmol/L (136-145); TCO2 22 mmol/L (25-35)
--- NOTE | 2017-03-23 07:35 | Diag Imaging Result Doc PS360 ---
CHEST-PORTABLE - 03/23/2017 INDICATION: difficulty breathing TECHNIQUE: COMPARISON: 03/20/2017 FINDINGS: There is borderline cardiomegaly. There are trace pleural effusions similar to 12/06/2016. No infiltrates or edema. IMPRESSION: Worsening cardiomegaly and trace pleural effusions. Electronically signed by Walt Antony 03/23/2017 7:33 AM
--- NOTE | 2017-03-23 07:37 | CONSULTATION ---
DATE OF CONSULTATION: 03/23/2017 REQUESTING PHYSICIAN: Latoya Valdivia MD CONSULT: GI bleed. HISTORY OF PRESENT ILLNESS: This is an 86-year-old female, who presented to the hospital with rectal bleeding. She denied any kind of abdominal pain. She denied any kind of change in her bowel habits. She said this is the 1st time she has ever had an episode like this. She does report having a poor appetite. She underwent a colonoscopy by Dr. Valdivia last night/early this morning and found blood throughout her colon, but no obvious source of bleeding was noted. There is a scheduled repeat colonoscopy for this morning. I did discuss her colonoscopy with Dr. Valdivia extensively over the phone. The patient is currently without major issues, resting in her ICU bed. PAST MEDICAL HISTORY: Includes hypertension, atrial fibrillation, chronic lymphocytic leukemia, cerebrovascular accident x3 with left hemiparesis, and breast cancer. PAST SURGICAL HISTORY: Includes hysterectomy, appendectomy, cholecystectomy, and left breast lumpectomy. FAMILY HISTORY: Positive for heart disease and melanoma. SOCIAL: Denies alcohol, tobacco, or illicit drugs. ALLERGIES: Demerol, Phenergan, and Levaquin. HOME MEDICATIONS: Reviewed. She is on Prilosec. REVIEW OF SYSTEMS: A full 10 point review of systems obtained, were negative except as specified in HPI. PHYSICAL EXAMINATION: Vital Signs: Patient is currently afebrile. Her vital signs have been stable. General: No acute distress. Resting comfortably in bed. HEENT: Normocephalic, atraumatic. Pupils equal, round, react to light. Mucous membranes moist. Oropharynx benign. Neck: Supple. Trachea midline. Cardiovascular: Regular rate and rhythm. Lungs: Grossly clear. Abdomen: Soft, nondistended, nontender. Extremities: Moves all extremities. Neurologic: Grossly intact. Skin: No signs of jaundice. Vascular: All extremities perfused. LABORATORY: Most recent hematocrit is 32.9. CT scan on admission reviewed, which showed diverticulosis but no signs of diverticulitis. ASSESSMENT/PLAN: An 86-year-old female with multiple medical comorbidities, now with likely lower gastrointestinal bleed. 1. Lower gastrointestinal bleed. At this time, she has had a colonoscopy that did not show an obvious source, but there was blood in her colon. There is plan for repeat colonoscopy. I would like to followup with those results. She is currently being resuscitated as a no extremist. Once we can followup with this, we can make further recommendations. 2. Multiple medical comorbidities, currently being managed by the hospitalist service. I appreciate the consult. cc: Tremayne Christianson MD
[2017-03-23] MEDS: XOPENEX NEB INH SCH ×4 (07:46→21:04)
[2017-03-23] MEDS ORDERED: NS 1,000 ML IV SCH (09:48)
[2017-03-23] MEDS ORDERED: LASIX IV SCH (10:00)
[2017-03-23] MEDS: PATIENT'S OWN MED INH SCH (11:24)
[2017-03-23] MEDS: TOPROL XL PO SCH (11:24)
[2017-03-23] MEDS: PROTONIX 80 MG in NS 80 ML IV SCH (11:25)
[2017-03-23] MEDS ORDERED: PROTONIX IV SCH (11:32)
--- NOTE | 2017-03-23 19:08 | PROGRESS NOTE ---
DATE: 03/23/2017 SUBJECTIVE: Patient has no focal complaints. OBJECTIVE: Vital signs: Blood pressure is 145/77, heart rate 95, respiratory rate 14, temperature 97.8 degrees, 96% on room air. Cardiovascular: Regular rate and rhythm. Pulmonary: Bilateral breath sounds. Clear to auscultation. GI: Soft, nondistended, nontender. Extremities: No clubbing or cyanosis. Lymphatics: No peripheral edema. Neurological: Nonfocal. LABORATORY DATA: Her hemoglobin and hematocrit last night dropped to about 5 and 18. Has come up to 10 and 33. In total she has gotten 5 units of packed red blood cells and 4 units of FFP. PROBLEM LIST: 1. Gastrointestinal bleed, likely diverticular. Related also to coagulopathy. Hemoglobin and hematocrit have stabilized. She was given FFP but despite that she had persistent bleeding. It sounds like she got another 2 units of FFP and another 3 units of blood. Repeat colonoscopy today I think showed no active bleeding but there were couple areas of fresher blood near some diverticula. I do think if she is not improve she will need a bleeding scan to better characterize her bleeding source and then consideration for angiography and embolization potentially. GI is following, appreciate their aggressive care. I think Dr. Valdivia evaluated the patient last night and Dr. Dunn repeated her test again this morning. 2. Volume overload. We will attempt some diuresis and follow closely. 3. Chronic lymphocytic leukemia. Her counts are fairly stable, actually on the low side. 4. Hypernatremia. We will adjust her fluid status and follow closely. cc: Soto Dos Santos MD
[2017-03-23 20:07] LABS: HEMOGLOBIN 9.5 g/dL (12.0-16.0)
[2017-03-23] MEDS: NS 1,000 ML IV SCH (20:10)
--- NOTE | 2017-03-23 20:42 | OPERATIVE NOTE ---
PROCEDURE DATE: 03/23/2017 PROCEDURE: Colonoscopy. PREOPERATIVE DIAGNOSIS: 1. Lower gastrointestinal bleed. 2. Anemia secondary to gastrointestinal bleed. POSTOPERATIVE DIAGNOSIS: 1. Diverticular bleeding. 2. Diverticulosis. HISTORY: This is an 86-year-old lady admitted to hospital with GI bleed. She has had bleed requiring blood transfusions. She continues to bleed requiring blood transfusions. Dr. Valdivia has done her EGD and flexible sigmoidoscopy last night which was essentially negative except for blood in her distal colon. I am doing her colonoscopy to identify the etiology and treat accordingly. DETAILS OF OPERATION: Informed consent obtained from the patient as well as her daughter who was present at the bedside. Procedure risks, benefits, alternatives were explained in layman's terms. She understood. All her pertinent questions were answered. Patient was brought to the endoscopy unit and was premedicated as per Anesthesia. After adequate sedation, while she was lying in left lateral position, digital rectal exam was performed which revealed a small amount of blood on my finger stalk. Otherwise, no mass felt. Scope was then gently introduced into the rectum and advanced under direct vision. Immediately in the rectum I saw altered blood adherent to the rectal mucosa. With vigorous irrigation and suctioning I was able to cleanse the area as I advanced the scope all the way up to the cecum. The cecum was identified by ileocecal valve and appendiceal orifice. The scope was then passed through the normal ileocecal valve into terminal ileum. About 5 cm of terminal ileum was examined, which was normal. I did see specks of blood in the right side of the colon, but most of the colon mucosa was covered with bile-colored colon content. However, starting from the distal transverse colon, I started seeing some more fresh blood and adherent blood in the colon. Again, vigorous suctioning and irrigation was employed to cleanse the colon as much as I could. Visualizing the colon mucosa, I started seeing diverticulosis in the descending colon and sigmoid colon. In the sigmoid colon they were worse. She had severe diverticulosis involving the distal sigmoid colon and the distal descending colon. There were adherent blood clots. I kept on washing and cleansing. Even after cleaning as much as I could I did not see the specific site of her bleeding. The entire colon was checked at least 2- 3 times, especially the distal part of the colon, but I did not see any specific diverticula that would need attention or treatment. Retroflexed view of rectum revealed no pathology except for blood. The scope was then removed. Patient tolerated the procedure with no complications noted. Patient was then transferred to the recovery area in a stable condition. IMPRESSION: Diverticular bleeding. Diverticulosis. Otherwise, normal colon up to the terminal ileum. RECOMMENDATION: I would keep her on liquid diet and follow her hemoglobin and hematocrit, transfuse if necessary. If she starts bleeding actively again. She may need repeat endoscopy for therapeutic purposes. Unfortunately, considering her age and her comorbid condition, she carries a high risk for surgical intervention, but if we do not have any other options, she may require surgical intervention. I have explained the finding and plan to the patient's family member, her daughter. She understood. All her pertinent questions answered. cc: Ezra Dunn MD
[2017-03-24] MEDS: CARAFATE LIQUID PO SCH ×4 (02:01→19:49)
[2017-03-24 04:16] LABS: HEMATOCRIT 27.7 % (37.0-47.0); HEMOGLOBIN 8.9 g/dL (12.0-16.0); MCH 28.3 PG (27-31); MCHC 32.1 g/dL (33-37); MCV 87.9 FL (81-99); MPV 11.1 FL (7.4-10.4); RBC 3.15 XMIL (4.2-5.4)
[2017-03-24] MEDS: ZOSYN 3.375 GM in NS 50 ML IV SCH ×4 (04:26→23:37)
[2017-03-24 04:43] LABS: POTASSIUM 2.7 mmol/L (3.5-5.1)
[2017-03-24] MEDS ORDERED: CALCIUM GLUCONATE 1 GM in NS 50 ML IV ONE (05:22)
[2017-03-24] MEDS: TOPROL XL PO SCH (08:22)
--- NOTE | 2017-03-24 08:48 | PROGRESS NOTE ---
DATE: 03/24/2017 SUBJECTIVE: Patient is doing okay. No more bloody bowel movement. She had a colonoscopy that showed the potential for diverticular bleed, but no active bleeding. Nursing staff reports no issues and the patient reports no issues. OBJECTIVE: Vital Signs: Patient is currently afebrile. Her vital signs are stable. She did have 1 episode of systolic blood pressure in the 90s when she was asleep but otherwise, she has been doing perfectly fine. She is voiding well. She has not had another bloody bowel movement. General: No acute distress. HEENT: Normocephalic, atraumatic. Pupils equal, round, reactive to light. Mucous membranes moist. Oropharynx benign. Neck: Supple. Trachea midline. Cardiovascular: Regular rate and rhythm. Lungs: Grossly clear. Abdomen: Soft, nondistended, nontender. Extremities: Moves all extremities. Neurologic: Grossly intact. Skin: No signs of jaundice. Vascular: All extremities perfused. LABORATORY: Hematocrit is 27. ASSESSMENT AND PLAN: This is an 86-year-old female with multiple medical comorbidities now with lower gastrointestinal bleed. 1. Lower gastrointestinal bleed. At this time the running diagnosis is potentially diverticular bleed, although she has not had any more active bleeding. I agree with a repeat colonoscopy if she does have any other signs of bleeding. She is probably not a great surgical candidate but if she does have a life-threatening bleed will need to consider surgery. 2. Multiple medical comorbidities. Currently being managed by the hospitalist service. cc: Tremayne Christianson MD
[2017-03-24] MEDS ORDERED: NON-FORMULARY BULK MED INH SCH (09:00)
[2017-03-24] MEDS ORDERED: LASIX IV SCH (09:00)
[2017-03-24] MEDS: XOPENEX NEB INH SCH ×2 (09:44→21:30)
[2017-03-24] MEDS: NON-FORMULARY BULK MED INH SCH ×2 (09:44→21:30)
[2017-03-24] MEDS: NS 1,000 ML IV SCH (10:38)
[2017-03-24] MEDS: PROTONIX IV SCH (10:39)
--- NOTE | 2017-03-24 11:30 | PROGRESS NOTE ---
DATE: 03/24/2017 SUBJECTIVE: Patient states she is feeling better. She denies any active bleeding since yesterday. No reported abdominal pain. Patient required an urgent EGD and colonoscopy early yesterday morning by Dr. Valdivia for symptomatic GI bleeding. EGD showed Schatzki 's ring, hiatal hernia and nonerosive gastritis, gastric stasis and nonbleeding gastric AVMs. A partial colonoscopy showed active lower bleeding possibly diverticular, redundant colon , extensive diverticulosis, grade 2 internal hemorrhoids and large external hemorrhoids. A repeat colonoscopy by Dr. Dunn morning showed diverticular bleeding, diverticulosis, otherwise normal colon up to the terminal ileum. The specific site of bleeding was unable to be identified. Current hemoglobin and hematocrit today are 8.9 and 27.7. Over the course of her hospitalization she has had 5 units of packed red blood cells and 4 units of fresh frozen plasma. OBJECTIVE: Vital Signs: Temperature 98.3 degrees, pulse 60, respirations 20, blood pressure 144/52. General: Patient is awake, alert, no acute distress. HEENT: Normocephalic, atraumatic. Pupils equal, round, reactive to light. Sclerae nonicteric. Cardiovascular: Regular rate and rhythm. Respiratory: Lung sounds clear bilaterally. Abdomen : Soft, nondistended. Nontender. LABORATORY: Hematology: White count 12.46, hemoglobin 8.9, hematocrit 27.7, MCV 87.9, platelet 103,000, chemistry sodium 146, potassium 2.7, chloride 108, CO2 27, BUN 7 creatinine 1.0. ASSESSMENT AND PLAN: 1. Rectal bleeding most likely diverticular. 2. Anemia. 3. Hypokalemia. PLAN: Continue to monitor hemoglobin and hematocrit and transfuse further packed red blood cells as needed. Continue to monitor for active bleeding. If she rebleeds we may have to repeat colonoscopy. Will need potassium replacement. Further plans will be made according to her progress. I have discussed this case with Dr. Dunn. GI will continue to follow and be available as needed. Dictated by NATHAILA Griffin for Ezra Dunn MD cc: NATHALIA Lebron MD [facility]
[2017-03-24] MEDS: POTASSIUM CHLORIDE 20 MEQ/SWI 20 MEQ/100 ML IVPB IV SCH ×2 (11:39→16:15)
[2017-03-24] MEDS: D5 1/2 NS 1,000 ML IV SCH (11:39)
[2017-03-24] MEDS ORDERED: CALCIUM GLUCONATE 4.65 MEQ in NS 50 ML IV ONE (12:00)
[2017-03-24] MEDS ORDERED: POTASSIUM CHLORIDE 20 MEQ in NS 100 ML IV SCH (12:00)
[2017-03-24 12:10] LABS: HEMATOCRIT 30.8 % (37.0-47.0); HEMOGLOBIN 9.9 g/dL (12.0-16.0); MCH 28.5 PG (27-31); MCHC 32.1 g/dL (33-37); MCV 88.8 FL (81-99); MPV 10.5 FL (7.4-10.4); RBC 3.47 XMIL (4.2-5.4)
--- NOTE | 2017-03-24 12:25 | PROGRESS NOTE ---
DATE: 03/24/2017 OBJECTIVE: Vital Signs: Blood pressure 144/52, heart rate 60, respiratory rate 20, temperature 98.3. Cardiovascular: Regular rate and rhythm. Pulmonary: Bilateral breath sounds. Clear to auscultation. GI: Soft, nontender, nondistended. Bowel sounds are positive. Extremities: No clubbing or cyanosis. Lymphatics: No peripheral edema. LAB DATA: Hemoglobin and hematocrit has kind of steadily dropped since yesterday, it was 10 and 32, and is now at 8.9 and 27.7. Now, she has not had any gross bleeding. Potassium is 2.7, calcium 7. PROBLEM LIST: 1. Gastrointestinal bleed. I think this is resolving. There is concern over repeating her colonoscopy if she re-bleeds, which I think is reasonable. I am going to go ahead and progress with the bleeding scan. If it is negative, that will at least be reassuring she is not actively bleeding. If it is positive it may help localize it. She has gotten 5 units of blood and 4 units of fresh frozen plasma. Clinically, she looks okay and her vital signs seem stable. Appreciate gastrointestinal input. 2. Volume overload. We will decrease her diuretics and repeat her chest x-ray. 3. Hypokalemia. Will supplement. 4. Hypocalcemia. Will supplement and follow. DISPOSITION: Pending her clinical status. cc: Soto Dos Santos MD
--- NOTE | 2017-03-24 16:02 | Diag Imaging Result Doc PS360 ---
EXAM: GI BLEED HISTORY: gi bleed TECHNIQUE: Radionuclide red cell study for GI bleeding, 26.8 mCi of technetium 99m pertechnetate and cold PYP. COMMENT: Patient was scanned over a 60 minute period, and there is physiologic distribution of radiotracer to the blood pool and the stomach. Gradual accumulation is seen in the urinary bladder. There is a small focus of increased activity which is seen best around image nine in the area of the lower portion of the liver or hepatic flexure of the colon. This does not progress in a normal peristaltic manner but fades away on subsequent images. Correlating with the CT of 03/20/2017 there is a questionable area of narrowing of the hepatic flexure of the colon which may be associated with some increase in contrast enhancement. This is a very questionable and subtle finding but given the fact of this is in the same area as the blush seen on the red cell scan further evaluation with endoscopy may be desirable. Otherwise there is no evidence of a focus of active bleeding in the abdomen or pelvis. IMPRESSION: Questionable vascular blush in the area of the hepatic flexure of the colon. Electronically signed by Gal Fenton 03/24/2017 3:59 PM
[2017-03-25] MEDS: CARAFATE LIQUID PO SCH ×4 (04:46→20:38)
[2017-03-25] MEDS: D5 1/2 NS 1,000 ML IV SCH ×2 (04:47→22:32)
[2017-03-25] MEDS: ZOSYN 3.375 GM in NS 50 ML IV SCH ×4 (04:51→22:35)
[2017-03-25 06:54] LABS: MAGNESIUM 1.3 mg/dL (1.5-2.7)
[2017-03-25 06:56] LABS: CALCIUM 7.3 mg/dL (8.8-10.2)
[2017-03-25] MEDS: XOPENEX NEB INH SCH ×4 (08:09→21:35)
[2017-03-25] MEDS: NON-FORMULARY BULK MED INH SCH ×2 (08:10→21:35)
[2017-03-25 08:13] LABS: HEMATOCRIT 29.6 % (37.0-47.0); HEMOGLOBIN 9.6 g/dL (12.0-16.0)
[2017-03-25] MEDS: TOPROL XL PO SCH (08:54)
[2017-03-25] MEDS: PROTONIX IV SCH (08:54)
[2017-03-25] MEDS ORDERED: KLOR-CON PO ONE (11:17)
[2017-03-25] MEDS: POTASSIUM CHLORIDE 20 MEQ/SWI 20 MEQ/100 ML IVPB IV SCH ×2 (11:52→13:27)
[2017-03-25] MEDS ORDERED: MAGNESIUM SULFATE 2 GM/S.W.I. 2 GM/50 ML IVPB IV ONE (12:28)
[2017-03-25] MEDS ORDERED: SODIUM PHOSPHATE 40 MEQ in NS 250 ML IV ONE (12:28)
[2017-03-25 12:51] LABS: HEMATOCRIT 27.3 % (37.0-47.0); HEMOGLOBIN 8.8 g/dL (12.0-16.0)
[2017-03-25] MEDS: COZAAR PO SCH (13:26)
[2017-03-25] MEDS: NEUTRA-PHOS PO SCH ×3 (13:26→20:38)
--- NOTE | 2017-03-25 14:09 | PROGRESS NOTE ---
DATE: 03/25/2017 SUBJECTIVE: The patient just seems a little bit more weak today, just very tired. OBJECTIVE: Vital signs: Blood pressure 169/53, heart rate of 59, respiratory rate 17, temperature 97.4 degrees, 97 on room air. Cardiovascular: Regular rate and rhythm. Pulmonary: Bilateral breath sounds. Clear to auscultation. GI: Soft, nontender, nondistended. Bowel sounds are positive. LABORATORY DATA: Hemoglobin and hematocrit today is 9.6 and 29.6, potassium is 3, magnesium is 2.3, phosphatase 2.6. PROBLEM LIST: 1. Gastrointestinal bleed apparently patient started bleeding again this morning maroon-colored. Bleeding scan was not really diagnostic. She did have a little bit of blush in the hepatic flexure. This is certainly possible that she may have a low-grade bleed occurring there. I have discussed the case with Dr. Barron, he is going to come and reevaluate her and decide about other treatment options. We will check another hemoglobin and hematocrit this afternoon and then this evening and see where we are at. 2. Volume overload. We will continue diuretic therapy and follow. 3. Hypertension. We will resume her losartan and follow. 4. Fluid, electrolytes, nutrition. She is hypokalemic, hypophosphatemic and hypomagnesemic, we will supplement those levels and follow. DISPOSITION: Pending her clinical status. Updated her daughter. Explained this is a diverticular bleed which can reactivate, treatment options are re-scoping, consideration for angiography and surgery is also involved in her case. If she has any significant bleeding and requires further transfusion she may unfortunately require surgical treatment. We will continue to follow. cc: Soto Dos Santos MD
--- NOTE | 2017-03-25 14:39 | PROGRESS NOTE ---
DATE: 03/25/2017 SUBJECTIVE: The patient denies abdominal pain. She had a little nausea. No vomiting. Overnight there was noted to be some liquid maroon stool. OBJECTIVE: She is afebrile. Vital signs are stable. Blood pressure 169/53.General: She is awake and alert. No acute distress. GI: Soft, nontender, nondistended. Good bowel sounds. LABORATORY: Hemoglobin is 8.8, and hematocrit 27.3. This is slightly down from yesterday when it was 9.9 and 30.8. ASSESSMENT AND PLAN: An 86-year-old female with lower gastrointestinal bleed likely diverticular in origin. It has not been completely localized yet. Should she continue to show ongoing bleeding which is questionable at this point, then I think a repeat colonoscopy would be the next step. A tagged red blood cell scan followed by a CT angiogram of abdomen if the tagged scan is positive is another option. cc: Kaden Goodwin MD
[2017-03-25 17:31] LABS: HEMOGLOBIN 8.9 g/dL (12.0-16.0)
[2017-03-26 01:44] LABS: HEMATOCRIT 26.6 % (37.0-47.0); HEMOGLOBIN 8.6 g/dL (12.0-16.0)
[2017-03-26] MEDS: CARAFATE LIQUID PO SCH ×4 (02:00→20:16)
[2017-03-26] MEDS: ZOSYN 3.375 GM in NS 50 ML IV SCH ×3 (05:01→16:57)
[2017-03-26] MEDS: PROTONIX IV SCH (08:17)
[2017-03-26] MEDS: NEUTRA-PHOS PO SCH ×4 (08:17→20:16)
[2017-03-26] MEDS: COZAAR PO SCH (08:17)
[2017-03-26] MEDS: TOPROL XL PO SCH (08:17)
[2017-03-26 08:31] LABS: HEMATOCRIT 28.3 % (37.0-47.0); HEMOGLOBIN 9.1 g/dL (12.0-16.0)
[2017-03-26 08:35] LABS: AGAP 7; BUN 4 mg/dL (8-22); CALCIUM 7.5 mg/dL (8.8-10.2); CHLORIDE 106 mmol/L (98-107); COSMO 276; POTASSIUM 3.7 mmol/L (3.5-5.1); SODIUM 140 mmol/L (136-145); TCO2 27 mmol/L (25-35)
[2017-03-26] MEDS: NON-FORMULARY BULK MED INH SCH ×2 (08:38→21:20)
[2017-03-26] MEDS: XOPENEX NEB INH SCH ×3 (08:38→21:20)
[2017-03-26 08:45] LABS: HEMATOCRIT 27.4 % (37.0-47.0); HEMOGLOBIN 8.8 g/dL (12.0-16.0); MCH 29.7 PG (27-31); MCHC 32.1 g/dL (33-37); MCV 92.6 FL (81-99); MPV 10.5 FL (7.4-10.4); RBC 2.96 XMIL (4.2-5.4)
[2017-03-26] MEDS: D5 1/2 NS 1,000 ML IV SCH (13:03)
--- NOTE | 2017-03-26 16:31 | PROGRESS NOTE ---
DATE: 03/26/2017 SUBJECTIVE: The patient has no focal complaints. OBJECTIVE: Vital Signs: Blood pressure 126/46, heart rate is 77, respiratory rate of 19, temperature 97.5 degrees. Cardiovascular: Regular rate and rhythm. Pulmonary: Bilateral breath sounds. Clear to auscultation. Gastrointestinal: Soft, nontender, nondistended. Bowel sounds were positive. LABORATORY DATA: White count 11, hemoglobin and hematocrit 8 and 27, platelets 127,000. Basic was normal. PROBLEM LIST: 1. Gastrointestinal bleed. Clinically, her hemoglobin and hematocrit is stable. Her bleeding has slowed down. Bleeding scan was not diagnostic, although there may be some questionable bleeding in the hepatic flexure. Dr. Barron is following Dr. Dunn, who will assume care tomorrow. 2. Volume overload. We will monitor on diuresis. 3. Hypertension. Appears to be stable. 4. Her hypokalemia has improved. We will repeat her electrolytes tomorrow. DISPOSITION: If no further bleeding, I think she could possibly be transitioned to step-down tomorrow, depending on how her levels look. cc: Soto Dos Santos MD
--- NOTE | 2017-03-26 18:14 | PROGRESS NOTE ---
DATE: 03/26/2017 SUBJECTIVE: No abdominal pain or bloody bowel movements. OBJECTIVE: Vital signs: She is afebrile. Vital signs are stable. General: She is alert and oriented x4. No acute distress. Gastrointestinal: Soft, nontender, nondistended. LABORATORY WORK: Hemoglobin 9.1, hematocrit 28.3. This was stable over the last 24 hours. ASSESSMENT/PLAN: An 86-year-old female with lower gastrointestinal bleed, likely diverticulosis. It appears to be resolved. She can have a diet as tolerated. cc: Kaden Goodwin MD
[2017-03-26 21:16] LABS: HEMOGLOBIN 7.9 g/dL (12.0-16.0)
[2017-03-26] MEDS ORDERED: NS 500 ML ONE (22:26)
[2017-03-27] MEDS: ZOSYN 3.375 GM in NS 50 ML IV SCH ×4 (01:33→21:12)
[2017-03-27] MEDS: ZOFRAN IV PRN (01:37)
[2017-03-27] MEDS: CARAFATE LIQUID PO SCH ×4 (01:37→21:12)
[2017-03-27 03:26] LABS: HEMATOCRIT 26.6 % (37.0-47.0); HEMOGLOBIN 8.6 g/dL (12.0-16.0)
[2017-03-27] MEDS: D5 1/2 NS 1,000 ML IV SCH ×2 (04:42→16:20)
--- NOTE | 2017-03-27 06:23 | PROGRESS NOTE ---
DATE: 03/27/2017 SUBJECTIVE: I discussed with the nurse. There was some concern about recurrent bleeding per rectum versus in her urine. The nursing staff reports that it is hard to distinguish at this time because she essentially does both at the same time. The patient has not been hemodynamically unstable, but she did get 1 unit of blood transfused. OBJECTIVE: Vital Signs: The patient is currently afebrile. Her vital signs have been stable. General: No acute distress. HEENT: Normocephalic, atraumatic. Pupils equal, round, reactive to light. Mucous membranes moist. Oropharynx benign. Neck: Supple. Trachea midline. Cardiovascular: Regular rate and rhythm. Lungs: Grossly clear. Abdomen: Soft, nontender, nondistended. Extremities: Moves all extremities. Neurologic: Grossly intact. Skin: No signs of jaundice. Vascular: All extremities perfused. LABORATORY DATA: Hematocrit is 26.6. Bleeding scan from 03/24/2017 reviewed. There is potential for bleeding in the hepatic flexure. ASSESSMENT AND PLAN: An 86-year-old female with likely lower gastrointestinal bleed. 1. Gastrointestinal bleed: At this time, questionably localized to the hepatic flexure, although it is very scant bleeding. I think that a repeat colonoscopy would probably be the best thing for her to better localize it. I am not sure that she would tolerate any major surgical intervention. 2. Multiple medical comorbidities: Currently being managed by the hospitalist service. cc: Tremayne Christianson MD
[2017-03-27 08:31] LABS: HEMATOCRIT 25.7 % (37.0-47.0); HEMOGLOBIN 8.3 g/dL (12.0-16.0); MCHC 32.3 g/dL (33-37); MCV 89.9 FL (81-99); MPV 10.6 FL (7.4-10.4); RBC 2.86 XMIL (4.2-5.4)
[2017-03-27 08:58] LABS: MAGNESIUM 1.6 mg/dL (1.5-2.7)
[2017-03-27 09:02] LABS: AGAP 9; BUN 8 mg/dL (8-22); CALCIUM 7.7 mg/dL (8.8-10.2); CHLORIDE 108 mmol/L (98-107); COSMO 281; POTASSIUM 3.8 mmol/L (3.5-5.1); SODIUM 142 mmol/L (136-145); TCO2 25 mmol/L (25-35)
[2017-03-27] MEDS: COZAAR PO SCH (09:28)
[2017-03-27] MEDS: TOPROL XL PO SCH (09:28)
[2017-03-27] MEDS: NEUTRA-PHOS PO SCH ×4 (09:28→21:12)
[2017-03-27] MEDS: PROTONIX IV SCH (09:31)
[2017-03-27] MEDS: XOPENEX NEB INH SCH ×3 (09:50→19:19)
[2017-03-27] MEDS: NON-FORMULARY BULK MED INH SCH (09:51)
--- NOTE | 2017-03-27 11:27 | PROGRESS NOTE ---
DATE: 03/27/2017 SUBJECTIVE: The patient has no focal complaints. OBJECTIVE: Vital Signs: Blood pressure 156/78, heart rate of 86, respiratory rate 19, temperature 97.9 degrees, 96% on room air. Cardiovascular: Regular rate and rhythm. Pulmonary: Bilateral breath sounds. Clear to auscultation. Gastrointestinal: Abdomen was soft, nontender, nondistended. Bowel sounds are positive. LABORATORY DATA: White count 12. Hemoglobin and hematocrit 8 and 25, but dropped to 7.9 and 24, so she did get transfused last night. Chemistries are unremarkable. PROBLEM LIST: 1. Gastrointestinal bleed, recurrent, persistent. She has gotten 6 units of blood now total for this bleeding episode. We will monitor her hemoglobin and hematocrit. Follow PPI. Dr. Ezra Dunn will re-evaluate the patient today. I am going to reorder the bleeding scan just to see if anything changes. Again, she is a high-risk surgical candidate and the patient herself refuses surgery so we are going to try and manage with other therapies if possible. I am not sure if she may be a candidate for angiography and embolization. I will talk to Dr. Dunn about that. 2. Volume overload. We will continue monitor on diuresis. 3. Hypertension. Appears to be stable. DISPOSITION: Will monitor in the ICU still since her hemoglobin and hematocrit is continuing to drop. cc: Soto Dos Santos MD
[2017-03-27] MEDS ORDERED: XYLOCAINE-MPF 2% ONE ×2 (11:45→11:50)
[2017-03-27] MEDS ORDERED: QUELICIN (DOSE) ONE ×2 (11:45→11:50)
[2017-03-27] MEDS ORDERED: DIPRIVAN 1% ONE (11:47)
[2017-03-27] MEDS ORDERED: FLEET ENEMA ONE (11:52)
[2017-03-27 14:21] LABS: HEMATOCRIT 26.4 % (37.0-47.0); HEMOGLOBIN 8.5 g/dL (12.0-16.0)
[2017-03-27] MEDS ORDERED: NS 250 ML ONE (15:05)
[2017-03-27 15:08] LABS: INR 1.12; PROTIME 11.9 Seconds (9.2-11.7)
--- NOTE | 2017-03-27 16:07 | Diag Imaging Result Doc PS360 ---
EXAM: CHEST-PORTABLE HISTORY: PICC line placement TECHNIQUE: Portable upright AP COMPARISON: 03/23/2017 FINDINGS: A right-sided PICC line has been placed since the prior exam. The tip overlies the junction of the superior vena cava and right atrium. Atelectasis or an infiltrate remains in the left base. There is also small left effusion. Right lung is well expanded and clear. Heart is not enlarged. IMPRESSION: Interval placement of a right-sided PICC line, otherwise stable chest. Electronically signed by Galileo Campbell 03/27/2017 4:05 PM
--- NOTE | 2017-03-28 02:48 | OPERATIVE NOTE ---
PROCEDURE DATE: 03/27/2017 PROCEDURE PERFORMED: Colonoscopy. PREOPERATIVE DIAGNOSES: 1. Lower gastrointestinal bleed. 2. Anemia secondary to gastrointestinal bleed. POSTOPERATIVE DIAGNOSES: 1. Diverticular bleeding. 2. Diverticulosis. 3. Otherwise, normal colon. HISTORY: This is an 86-year-old white female, who was admitted to the hospital with a lower GI bleed. She has had a colonoscopy earlier, which showed diverticular bleeding and diverticulosis, but I could not identify any specific diverticula that was bleeding. She was not treated. Bleeding initially did subside after the procedure, but she continues to bleed, albeit a small amount. However, requiring blood transfusion. So far during this hospitalization, she has received 6 units of packed RBCs. She has refused surgical intervention also. The colonoscopy was repeated to identify the source of bleeding and treat accordingly. DESCRIPTION OF PROCEDURE: Informed consent obtained from the patient, as well as her daughter. The procedure risks, benefits, and alternatives were explained in layman's terms. They understood. All the pertinent questions were answered. Patient was brought to the endoscopy unit and was premedicated as per Anesthesia. After adequate sedation, while she was lying in the left lateral position, digital rectal exam was performed, which was normal. However, there was some altered blood noted on my finger. No mass was noted. The scope was then gently introduced into the rectum, where immediately I saw the colonic mucosa, covered with altered blood. Vigorous irrigation and suctioning was employed to cleanse the colon, so that I could advance it all the way up to the cecum. The cecum was identified by the ileocecal valve and the appendiceal orifice. The scope was then passed through the normal ileocecal valve, into the terminal ileum. About 5 to 8 cm of the terminal ileum was examined, which was normal, but I did see some blood within the terminal ileum, which appeared to be altered, and appeared to have washed into the terminal ileum. Again, I started to vigorously irrigate and suction the area of the colon, starting from the cecum, and all the way up to the rectum. Cleansed as much as I could. I did see diverticula starting from the ascending colon, all the way up to the distal sigmoid colon, predominantly left colon was studded with diverticula. She had severe diverticulosis involving the left colon. There was altered blood seen within the diverticula, as well as adherent to the mucosa all the way from the cecum to the rectum. I could not identify any specific diverticula that was bleeding. There was no clot adherent to any diverticula, or streaming of bright red blood noted. I went up and down the cecum 3 times. I did not see any source of active bleeding. Retroflexed view of the rectum revealed no pathology. Again, except for the altered blood. The scope was removed. Patient tolerated the procedure well. No complications noted. Patient was then transferred to the recovery area in a stable condition. IMPRESSION: Diverticular bleeding, diverticulosis. Unfortunately, I was still not fortunate enough to find the exact source of her bleeding so treatment could be employed. Our plan would be to continue on a liquid diet, check her hemoglobin and hematocrit serially, and observe her. If she starts hemorrhaging out actively, that may be an opportunity time to repeat her endoscopy, and I would do it without prep, so I can identify the source of bleeding that could be treated, or we can continue to find a place for her at a tertiary center, where an interventional radiologist could render some therapy. I have explained the findings to the patient's daughter. She understood. All the pertinent questions were answered. Patient was transferred to the recovery area in a stable condition. cc: Ezra Dunn MD
[2017-03-28] MEDS: ZOSYN 3.375 GM in NS 50 ML IV SCH ×4 (03:06→20:05)
[2017-03-28] MEDS: CARAFATE LIQUID PO SCH ×4 (03:07→20:05)
[2017-03-28] MEDS: D5 1/2 NS 1,000 ML IV SCH (03:11)
[2017-03-28 06:25] LABS: HEMATOCRIT 19.8 % (37.0-47.0); HEMOGLOBIN 6.3 g/dL (12.0-16.0); MCH 29.9 PG (27-31); MCHC 31.8 g/dL (33-37); MCV 93.8 FL (81-99); MPV 10.8 FL (7.4-10.4); RBC 2.11 XMIL (4.2-5.4)
[2017-03-28 07:32] LABS: CALCIUM 7.2 mg/dL (8.8-10.2); POTASSIUM 3.4 mmol/L (3.5-5.1)
[2017-03-28 07:35] LABS: HEMATOCRIT 20.4 % (37.0-47.0); HEMOGLOBIN 6.6 g/dL (12.0-16.0)
--- NOTE | 2017-03-28 07:53 | PROGRESS NOTE ---
DATE: 03/28/2017 SUBJECTIVE: No major issues. She did have a repeat colonoscopy that did not show any signs of active bleeding or active source of bleeding. At this time, the patient still does not want surgery and she is a high risk for surgery. OBJECTIVE: Vital Signs: Patient is currently afebrile. Her vital signs have been stable. General: No acute distress. female, looks stated age. HEENT: Normocephalic, atraumatic. Pupils equal, round, reactive to light. Mucous membranes moist. Oropharynx benign. Neck: Supple. Trachea midline. Cardiovascular: Regular rate and rhythm. Lungs: Grossly clear. Abdomen: Soft, nontender, nondistended. Extremities: Moves all extremities. Neurologic: Grossly intact. Skin: No signs of jaundice. Vascular: All extremities perfused. LABORATORY: Hematocrit down to 19.8 which is down from 26.4. ASSESSMENT/PLAN: An 86-year-old, female with GI bleed. 1. GI bleed. At this time her hematocrit has dropped again. She did have a recent colonoscopy that did not show any active source of bleeding but her hematocrit now is down to 19. Platelet count is 132. At this time, the options are repeat bleeding scan versus repeat colonoscopy. I doubt she is an ideal surgical candidate. But given the fact that her hematocrit has dropped down again significantly from the most recent check, may need to consider the option. We will update the hospitalist service and GI. 2. Multiple medical comorbidities. Makes the patient high risk for any surgery. We will continue to follow. There is a potential that this might be a lab error so I will repeat a hematocrit here now stat to see if it is truly 19, but if it is, need to consider this an active source of bleeding again. cc: Tremayne Christianson MD
[2017-03-28] MEDS: XOPENEX NEB INH SCH ×3 (09:30→21:00)
[2017-03-28] MEDS: NEUTRA-PHOS PO SCH ×4 (09:38→20:05)
[2017-03-28] MEDS: TOPROL XL PO SCH (09:38)
[2017-03-28] MEDS: PROTONIX IV SCH (09:38)
[2017-03-28] MEDS: COZAAR PO SCH (09:38)
--- NOTE | 2017-03-28 09:51 | PROGRESS NOTE ---
DATE: 03/28/2017 SUBJECTIVE: This patient stated that she is feeling fine. She is complaining of just mild neck pain, but otherwise she looks stable even though the hemoglobin dropped to 6.6 today. I will go ahead and transfuse this patient with 2 units of PRBC's. Gastroenterology has been notified. No bowel movements during the night. We have not noticed any other GI bleed. We will continue to monitor. OBJECTIVE: Vital Signs: Temperature 97.2 degrees, pulse 67, respiratory rate 13, blood pressure 143/40, oxygen saturation 94% on room air. HEENT: Head normocephalic. No trauma. PERRLA. Neck: Supple. No JVD. No masses. Central trachea. Chest: Clear to auscultation. No wheezing. No rales. Abdomen: Soft, nontender, nondistended. No hepatomegaly. Extremities: No edema. No clubbing. No cyanosis. Decreased muscle mass. Neurological examination: The patient is alert and oriented x3. She has left upper and lower extremity weakness secondary to previous CVA. LABORATORY: WBC 10.8, hemoglobin 6.6, hematocrit 20.4, platelets 132. Sodium 140, potassium 3.4, chloride 107, bicarbonate 26. BUN 8, creatinine 0.9, glucose 262 and calcium 7.2. ASSESSMENT AND PLAN: 1. Gastrointestinal bleed. This patient had a colonoscopy done yesterday. We did not see any source of bleed. Her hemoglobin and hematocrit dropped again. She has been on fluids. I will transfuse this patient with 2 packed red blood cells. Gastroenterology Department has been notified and, after the 2 units, this patient can be started on clear liquid diet. We will monitor her hemoglobin and hematocrit closely. 2. Volume overload. She does look good at this moment; she looks euvolemic. I will continue with the same management for now. 3. Hypertension, stable. 4. History of atrial fibrillation with chronic anticoagulation with Xarelto. That has been held. We will continue to monitor. 5. Deep vein thrombosis prophylaxis with sequential compression devices. 6. Gastrointestinal prophylaxis. Continue with pantoprazole intravenous. 7. Hypokalemia. This patient is getting potassium phosphate daily. Continue to monitor. cc: Ministerio Calvo MD
[2017-03-28] MEDS ORDERED: NS 500 ML ONE (10:15)
[2017-03-28] MEDS ORDERED: GOLYTELY PO ONE ×2 (13:15→14:00)
--- NOTE | 2017-03-28 14:55 | PROGRESS NOTE ---
DATE: 03/28/2017 SUBJECTIVE: The patient reports feeling weak and tired. She is receiving packed red blood cells. Her hemoglobin and hematocrit dropped today. The patient and nurse denied any visible rectal bleeding since yesterday at the time of my evaluation, around 11:00, but since then the patient did have a bloody stool and we were notified. OBJECTIVE: Vital Signs: Temperature 97.3 degrees, pulse 94, respirations 30, blood pressure 147/112. General: The patient was awake, alert, although weak and tired. Respiratory: Lung sounds essentially clear bilaterally. Abdomen: Soft, nontender. Positive bowel sounds. DIAGNOSTIC RESULTS/LABORATORY: Hematology: White count 10.86, hemoglobin 6.6, hematocrit 20.4, MCV 93.8. Chemistry: Sodium 140, potassium 3.4, chloride 107, CO2 of 26, BUN 8 , creatinine 0.9, glucose 262. ASSESSMENT: 1. Gastrointestinal bleed. The patient had an esophagogastroduodenoscopy and several colonoscopies with visible blood noted, but no definite site of bleeding has been identified. Continue to monitor hemoglobin and hematocrit. Transfuse packed red blood cells as needed. 2. History of atrial fibrillation. Xarelto is on hold. PLAN: Transfuse packed red blood cells as ordered. Continue to monitor for active bleeding. The patient did have a bloody stool since I had seen her. We will plan for colonoscopy this afternoon to see if the actual site of bleeding can be identified. We will prep the patient now. Further plans to be made according to findings. I have discussed this case with Dr. Dunn. I have also talked with the daughter and the patient. Dictated by NATHALIA Griffin for Ezra Dunn MD cc: NATHALIA Lebron MD [facility]
[2017-03-28] MEDS ORDERED: VERSED ONE (17:22)
[2017-03-28] MEDS ORDERED: XYLOCAINE-MPF 2% ONE (17:36)
[2017-03-28] MEDS ORDERED: EPINEPHRINE SYRINGE ONE (18:27)
[2017-03-28] MEDS ORDERED: D5 1/2 NS 1,000 ML IV SCH (18:37)
--- NOTE | 2017-03-28 19:36 | OPERATIVE NOTE ---
PROCEDURE DATE: 03/28/2017 PROCEDURE: Colonoscopy and hemorrhage control. PREOPERATIVE DIAGNOSIS: Lower gastrointestinal bleed, anemia secondary to lower gastrointestinal bleed. POSTOPERATIVE DIAGNOSES: 1. Diverticular bleeding, treated. 2. Diverticulosis. 3. Otherwise normal colon. HISTORY: This is an 86-year-old, white female, who has had multiple episodes of lower GI bleed. She has had endoscopies before where there was evidence of bleeding in the colon, but no particular diverticula was seen actively bleeding that could be treated. She started bleeding again and her hemoglobin and hematocrit dropped requiring blood transfusion. She was brought back today with quick prep and colonoscopy was done to identify the source of bleeding and treat accordingly. DESCRIPTION OF PROCEDURE: Informed consent obtained from the patient as well as her daughter. The procedure risks, benefits, alternatives were explained. They understood and agreed to proceed. Patient was brought to the endoscopy unit and was premedicated as per Anesthesia. After adequate sedation, while she was lying in left lateral position, digital rectal exam was performed, which was essentially negative. Scope was then gently introduced into the rectum and advanced under direct vision into the colon all the way up to the cecum. I did not see any evidence of blood or altered blood throughout the colon today. The cecum was identified by ileocecal valve and appendiceal orifice. The scope was then passed through the ileocecal valve into terminal ileum. About 8-10 cm of terminal ileum was examined which was normal. Scope was withdrawn back in the cecum, back through the parts of colon all the way to the rectum paying careful attention to details. Preparation was good. The visualized portion of the colon revealed extensive diverticula starting from the ascending colon all the way up to the distal sigmoid colon, but predominantly the diverticula within the distal sigmoid colon was severe. In the distal sigmoid colon around 30 cm from the anal verge, there were areas with mucosal erosion suggestive of possible site of active bleeding. However, there was no active bleeding now. Using a sclerotherapy needle, I injected the 1:10,000 epinephrine in aliquots of 0.5 mL, total of about 2 mL were injected in that area. Another spot was seen distal to that which was again edematous and hyperemic suggestive of possible site of bleeding. It could have been the site of bleeding as well. Using the sclerotherapy needle again, I injected 1:10,000 epinephrine in aliquots of 0.5 mL, total of 1 mL was injected. No bleeding was seen. The scope was withdrawn into the rectum. The rectum was examined both in straight and retroflexed view, which revealed no pathology. The scope was then removed. Patient tolerated the procedure well. No complications noted. Patient was then transferred to the recovery area in a stable condition. IMPRESSION: 1. Diverticular bleeding, treated. 2. Diverticulosis. RECOMMENDATION: I will start her on a full liquid diet. Continue to observe. Continue to check hemoglobin and hematocrit, and transfuse if necessary. Will follow her in the ICU with further plans made according to her progress. cc: Ezra Dunn MD
[2017-03-29] MEDS: CARAFATE LIQUID PO SCH ×4 (02:37→20:34)
[2017-03-29] MEDS: ZOSYN 3.375 GM in NS 50 ML IV SCH ×4 (02:37→20:35)
[2017-03-29 04:57] LABS: MANUAL DIFF NEEDED? NO
[2017-03-29 05:16] LABS: BASO% 0.4 % (0.0-0.8); EOS# 0.62 X1000 (0.0-0.7); EOS% 6.9 % (0.0-10.0); HEMATOCRIT 27.5 % (37.0-47.0); HEMOGLOBIN 9.1 g/dL (12.0-16.0); LYMPH# 5.62 X1000 (1.2-3.4); LYMPH% 62.5 % (20.5-51.1); MCH 28.6 PG (27-31); MCHC 33.1 g/dL (33-37); MCV 86.5 FL (81-99); MONO# 0.66 X1000 (0.11-0.59); MONO% 7.3 % (1.7-9.3); MPV 10.5 FL (7.4-10.4); NEUT% 22.9 % (42.2-75.2); PLT 118 X1000 (130-400); RBC 3.18 XMIL (4.2-5.4)
[2017-03-29 05:26] LABS: AGAP 6; ALBUMIN 2.3 g/dL (3.5-5.0); ALKALINE PHOSPHATASE 41 U/L (32-104); BUN 7 mg/dL (8-22); CALCIUM 7.8 mg/dL (8.8-10.2); CHLORIDE 108 mmol/L (98-107); COSMO 281; GOT 17 U/L (10-30); GPT 12 U/L (10-36); POTASSIUM 3.1 mmol/L (3.5-5.1); SODIUM 142 mmol/L (136-145); TCO2 28 mmol/L (25-35); TOTAL BILIRUBIN 0.75 mg/dL (0.20-1.00); TOTAL PROTEIN 3.6 g/dL (6.3-8.3)
--- NOTE | 2017-03-29 07:06 | PROGRESS NOTE ---
DATE: 03/29/2017 SUBJECTIVE: The patient underwent colonoscopy again. There were two places that they injected epinephrine but no real obvious sign of GI bleed. The patient has been doing well postoperatively. No more bloody bowel movements reported by the nursing staff. OBJECTIVE: Vital Signs: Patient is currently afebrile. Her vital signs are stable. General Examination: No acute distress. female, looks stated age. HEENT: Normocephalic, atraumatic. Pupils equal, round, reactive to light. Mucous membranes moist. Oropharynx benign. Neck: Supple. Trachea midline. Cardiovascular: Regular rate and rhythm. Lungs: Grossly clear. Abdomen: Soft, nontender, nondistended. Extremities: Moves all extremities. Neurologic: Grossly intact. Skin: No signs of jaundice. Vascular: All extremities perfuse. LABORATORY: Hematocrit 27.5, platelet count 118,000. ASSESSMENT/PLAN: An 86-year-old, female with persistent gastrointestinal bleed. 1. Gastrointestinal bleed. At this time, patient's hematocrit has been stable. She had a repeat colonoscopy last night that did not show any active source other than the injected 2 areas that potentially for the source. I suspect that she rebleeds. She needs to potentially be sent to [facility] for angiography and possible embolization by Interventional Radiology. She is not a good surgical candidate. I think at this point, the patient does not want any major surgeries. Again, we cannot localize it so it would be an essentially potential total abdominal colectomy. We will continue to follow while she is here. 2. Multiple medical comorbidities, currently being managed by the hospitalist service. cc: Tremayne Christianson MD
[2017-03-29] MEDS: TOPROL XL PO SCH (08:00)
[2017-03-29] MEDS: NEUTRA-PHOS PO SCH ×4 (08:00→20:36)
[2017-03-29] MEDS: PROTONIX IV SCH (08:00)
[2017-03-29] MEDS: COZAAR PO SCH (08:00)
[2017-03-29] MEDS ORDERED: POTASSIUM CHLORIDE 40 MEQ/SWI 40 MEQ/100 ML IVPB IV ONE (08:04)
[2017-03-29] MEDS: XOPENEX NEB INH SCH ×2 (09:38→21:04)
--- NOTE | 2017-03-29 10:05 | PROGRESS NOTE ---
DATE: 03/29/2017 SUBJECTIVE: This patient states that she is feeling much better. Yesterday, she had a colonoscopy done again, and the remote control assembler found areas with mucosal erosion suggestive of possible site of active bleeding. However, there was no active bleeding at that moment. They used scleral therapy in 2 different areas. So probably she had a diverticular bleeding, that has been treated. Her hemoglobin and hematocrit has been stable today. No more sign of bleed, but we need to keep an eye on this patient. I will ask for a new hemoglobin and hematocrit today in the afternoon and tomorrow morning, and she will be transferred to the medical floor. OBJECTIVE: Vital Signs: Temperature 98.4 degrees, pulse 84, respiratory rate 16, blood pressure 152/38, O2 saturation 97% on 2 L of nasal cannula. HEENT: Head - Normocephalic. No trauma. PERRLA. Neck: Supple. No JVD. No masses. Central trachea. Chest: Clear to auscultation. No wheezing. No rales. Abdomen: Soft, nontender, nondistended. No hepatosplenomegaly. Extremities: No edema. No clubbing. No cyanosis. Decreased muscle mass. Neurological: The patient is alert and oriented x3. She has left upper and lower extremity weakness secondary to previous CVA. LABORATORY: WBC 8.9, hemoglobin 9.1, hematocrit 27.5, platelets 118,000. Sodium 142, potassium 3.1, chloride 108, bicarbonate 28, BUN 7, creatinine 0.7, glucose 92, calcium 7.8, albumin 2.3. ASSESSMENT AND PLAN: 1. Gastrointestinal bleed. This patient had a colonoscopy done yesterday, and probably this bleeding is coming from a diverticular bleed. They found 2 areas of mucosal erosion suggestive of possible site of active bleeding. However, there was no active bleeding at that moment, and they use sclerotherapy for treatment. Also, they found an extensive diverticula throughout the colon. 2. Volume overload, stable at this moment. She looks euvolemic. Continue with the same management for now. 3. Hypertension, stable. 4. History of atrial fibrillation with chronic anticoagulation with Xarelto. Will stop it because of the GI bleed. We will continue to monitor. 5. Deep vein thrombosis prophylaxis with sequential compression devices. 6. Gastrointestinal prophylaxis. Continue with pantoprazole intravenous. 7. Hypokalemia. I will replace the potassium today. cc: Ministerio Calvo MD
[2017-03-29] MEDS: NON-FORMULARY BULK MED INH SCH ×2 (11:02→12:24)
[2017-03-29 16:27] LABS: HEMATOCRIT 29.9 % (37.0-47.0); HEMOGLOBIN 9.9 g/dL (12.0-16.0)
--- NOTE | 2017-03-29 16:51 | PROGRESS NOTE ---
DATE: 03/29/2017 SUBJECTIVE: The patient states she is feeling a lot better today. She did have a repeat colonoscopy. There were areas of mucosal erosion in the colon that were treated. There was no specific active bleeding noted at the time of the colonoscopy, but scleral therapy was applied to 2 different areas. She has not had any other signs of bleeding since yesterday. OBJECTIVE: Vital Signs: Temperature 99.4 degrees, pulse 74, respirations 26, blood pressure 153/74. General: The patient is awake and alert. No acute distress. Respiratory: Lung sounds essentially clear bilaterally. Abdomen: Soft, nontender. LABORATORY: Hematology: White blood cell 8.99, hemoglobin 9.1, hematocrit 27.5 , MCV 86.5, platelet 118,000. Chemistry: Sodium 142, potassium 3.1, chloride 108, CO2 28, BUN 7, creatinine 0.7, glucose 92, calcium 7.8. Colonoscopy report from yesterday showed diverticular bleeding with 2 areas that were treated. ASSESSMENT: 1. Diverticulosis. 2. Atrial fibrillation. Her anticoagulation is currently on hold. 3: GI bleed, most likely diverticular. PLAN: Continue symptomatic treatment and supportive care. Continue to monitor hemoglobin and hematocrit. Monitor for any further active bleeding. Transfuse packed red blood cells as needed. She has not had any active bleeding since yesterday. We will continue to follow. Further plans to be made according to her progress. The patient did get out of bed today. I have talked with the daughter regarding plan. She voices understanding. We will continue to follow. Dictated by NATHALIA Griffin for Ezra Dunn MD cc: NATHALIA Lebron MD [facility]
[2017-03-29 22:46] LABS: HEMATOCRIT 26.7 % (37.0-47.0); HEMOGLOBIN 8.7 g/dL (12.0-16.0); MCH 28.3 PG (27-31); MCHC 32.6 g/dL (33-37); MPV 10.6 FL (7.4-10.4); RBC 3.07 XMIL (4.2-5.4)
[2017-03-30 03:03] VITALS: BP 120/64
--- NOTE | 2017-03-31 10:54 | DISCHARGE SUMMARY ---
ADMISSION DATE: 03/20/2017 DISCHARGE DATE: 03/30/2017 CONSULTATIONS: 1. Dr. Dunn with Gastroenterology. 2. Dr. Tremayne Christianson with General Surgery. PERTINENT PROCEDURES: 1. Abdomen and pelvis CT showed small left pleural effusion, extensive diverticulosis throughout the colon. No indication of diverticulitis. No free air. No abscess. Right external iliac adenopathy, which appears to be stable, mildly decreased compared to previous exam. Borderline right inguinal lymph node which decreased in size. 2. March 20, 2017, EGD performed by Dr. Valdivia that showed nonerosive gastritis, nonbleeding gastric AVMs. 3. Colonoscopy on 03/23/2017 that showed an active lower GI bleed likely diverticular. 4. Second colonoscopy on 03/23/[address] Dunn showed a diverticular bleed and diverticulosis. 5. GI bleed nuclear med scan showed questionable vascular blush in the area of the hepatic flexure of the colon. 6. On 03/27/2017, colonoscopy for lower GI bleed performed by Dr. Dunn. 7. On 03/28/2017, colonoscopy and hemorrhage control for diverticular bleeding performed by Dr. Dunn. DISCHARGE DIAGNOSES: 1. Gastrointestinal bleed status post in one esophagogastroduodenoscopy and four colonoscopies with diverticular bleeding. They found to every 2 areas of mucosal erosions suggestive of possible side-effect of bleeding. They did use sclerotherapy for treatment. Also found extensive diverticula throughout the colon. However, on 03/29/2017, the patient started having bright red bloody bowel movements again. Dr. Valdivia was informed, and requested that the hospitalist be paged. She had a total of 5 bloody bowel movements. Stat H and H's were checked, and she was ultimately transferred to [facility] for endovascular embolization. 2. Volume overload now euvolemic. 3. Hypertension, stable. 4. Atrial fibrillation on chronic anticoagulation with Xarelto. Xarelto was stopped because of because of bleed. Rate is stable. 5. Acute blood loss anemia status post 8 units of packed red blood cells and 4 fresh-frozen plasma. HOSPITAL COURSE: Briefly, Ms. 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 Also has a history of hypertension, atrial fibrillation, on anticoagulation with Xarelto, CVA x3 with left hemiparalysis and breast cancer. According to the patient, around 1 a.m., she became lightheaded and went to the bathroom. She had a large bloody bowel movement. She did not pass out. Her daughter checked her blood pressure was 58/41. She was complaining of spells of nausea, but no emesis. In the ED, she had a hemoglobin and hematocrit of 11 and 35. Orthostatics were done. She did have some significant orthostatic with her blood pressure. Dr. Dunn was consulted, and she [facility]. Monitored serial hemoglobin and hematocrit, and gave orders to transfuse for PRBC for hemoglobin less than 8, and started on a Protonix drip, and added Carafate. Held her Xarelto, held her antihypertensives, and SCDs for her DVT prophylaxis. After Xarelto was held for an appropriate period of time, she was able to undergo her EGD and colonoscopy with Dr. Valdivia. EGD showed nonerosive gastritis and nonbleeding gastric AVMs. She did have active lower GI bleed that was likely diverticular. She was able to evacuate copious amounts of blood and clots, and consulted Dr. Tremayne Christianson. Though she continued to bleed and required blood transfusions, she underwent her second colonoscopy with Dr. Dunn. He did see more fresh blood that was suctioned and irrigated, and diverticulosis was seen in the descending colon and sigmoid colon, and severe diverticulosis involving the distal sigmoid colon and the distal descending colon, but still could not find any areas of active bleeding. On her nuclear scan, she had a blush in the hepatic flexure. After her second colonoscopy, she did start bleeding again. General Surgery was hesitant to do any surgery unless it was life- threatening, given her age. She underwent her third colonoscopy on 03/27/2017. They were still not fortunate enough to find the exact source of bleeding. Continue to monitor her and continue to transfuse with PRBCs and FFPs. On 03/28/2017, she underwent her fourth colonoscopy for rebleeding in the distal colon around 30 cm from the anal verge. There were areas of mucosal erosion suggestive of possible active bleeding. However, they were not active at the time of the colonoscopy. So they did sclerotherapy to that site. They also found another spot distal to that, that was again edematous and hyperemic suggestive of possible site of bleeding, that they use sclerotherapy on again, but no active bleeding was seen. Unfortunately, on 03/30/2017 around 9:45, the patient started having bloody bowel movements again. They notified Dr. Valdivia, who referred to Dr. Dos Santos. The patient had a total of 5 bloody bowel movements. They checked stat labs. Called the transfer Center in [place]. She was accepted there so, they can possibly due to intravascular embolization by OR, and she got transferred to [facility] 03/30/2017 around 2:30 in the morning. DISCHARGE TIME: 30 minutes. Patient seen and examined by me face to face, all the laboratory, vitals signs and images were reviewed, On my physical exam she is complaining of mild abdominal discomfort, she had multiple colonoscopy but she is still having bowel bleed, so after evaluation and for recurrent bleed we decided to transfer this lady to [facility], for possible intravascular embolization, I agreed with the assessment and plan, Ministerio Martínez MD. Dictated by NATHALIA Abad for Ministerio Calvo MD cc: MD Manuel Drummond MD [facility]
== END 2017-03-30 02:45 | disposition short-term general hospital (02) ==
LOC: ED 08:39 → SUATTDRO 11:48 → EDIPHOLD 11:48 → 3S 13:04 → ICU 03-23 01:14
PROVIDERS: ATTEND Internal Medicine

== ENCOUNTER 2019-02-18 12:05 | Inpatient (IN) ==
[2019-02-18] MEDS ORDERED: SODIUM CHLORIDE 0.9% INJ SCH (13:30)
--- NOTE | 2019-02-18 13:55 | Diag Imaging Result Doc PS360 ---
EXAM: CHEST-2 VIEWS HISTORY: SOB TECHNIQUE: Chest two views COMPARISON: 07/10/2017 FINDINGS: The lungs are hyperexpanded. Increased AP diameter to the chest. The pulmonary vessels are small. Mild cardiomegaly. There are small pleural effusion. No consolidation. Moderate scoliosis. There are surgical clips in the left axilla. IMPRESSION: Emphysema with small pleural effusions. Electronically signed by Galileo Campbell 02/18/2019 1:53 PM
[2019-02-18 14:29] LABS: INR 1.26
[2019-02-18 14:41] LABS: AGAP 11; ALB/GLOB RATIO 3.2; ALBUMIN 4.1 g/dL (3.5-5.0); ALKALINE PHOSPHATASE 99 U/L (32-104); BASO# 0.07 X1000 (0.0-0.2); BASO% 0.6 % (0.0-0.8); BUN 12 mg/dL (8-22); CALCIUM 9.4 mg/dL (8.8-10.2); CHLORIDE 104 mmol/L (98-107); CK PROFILE 29 U/L (24-173); COSMO 291; CREATININE 0.7 mg/dL (0.5-0.9); EOS# 0.26 X1000 (0.0-0.7); EOS% 2.1 % (0.0-10.0); ESTIMATED GFR > 60; GLUCOSE 111 mg/dL (70-104); GOT 23 U/L (10-30); GPT 14 U/L (10-36); HEMATOCRIT 40.8 % (37.0-47.0); HEMOGLOBIN 13.3 g/dL (12.0-16.0); IMM GRAN# 0.03 X1000 (0.0-0.04); IMM GRAN% 0.2 % (0.0-0.5); LYMPH# 6.87 X1000 (1.2-3.4); LYMPH% 54.8 % (20.5-51.1); MAGNESIUM 1.8 mg/dL (1.5-2.7); MCH 31.3 PG (27-31); MCHC 32.6 g/dL (33-37); MONO# 0.99 X1000 (0.11-0.59); MONO% 7.9 % (1.7-9.3); MPV 10.8 FL (7.4-10.4); NEUT# 4.32 X1000 (1.4-6.5); NEUT% 34.4 % (42.2-75.2); PLT 181 X1000 (130-400); POTASSIUM 4.1 mmol/L (3.5-5.1); RBC 4.25 XMIL (4.2-5.4); RDW 13.4 % (11.5-14.5); SODIUM 146 mmol/L (136-145); TCO2 31 mmol/L (25-35); TOTAL BILIRUBIN 0.24 mg/dL (0.20-1.00); TOTAL PROTEIN 5.4 g/dL (6.3-8.3); WBC 12.54 X1000 (4.8-10.8)
--- NOTE | 2019-02-18 15:04 | EKG Report ---
Test Performed on : 02/18/2019 2:26:28 PM Test Reason : chest pain Blood Pressure : / mmHG Vent. Rate : 065 BPM Atrial Rate : 340 BPM P-R Int : 000 ms QRS Dur : 084 ms QT Int : 420 ms P-R-T Axes : 000 -56 -12 degrees QTc Int : 436 ms Atrial fibrillation. Left anterior fascicular block Septal infarct (cited on or before 11-APR-2015) Abnormal ECG When compared with ECG of 03-DEC-2016 13:56, No significant change was found Confirmed by Kylie Stevens MD ([id number]) on 02/18/2019 4:24:58 PM
[2019-02-18 15:32] LABS: EOS 3 % (1-10); LYMPHS 42 % (21-51); MONO 5 % (1-9); SEGS 47 % (42-75)
[2019-02-18] MEDS: NEXIUM IV SCH (17:32)
[2019-02-18] MEDS: NS 1,000 ML IV SCH (17:33)
--- NOTE | 2019-02-18 22:20 | HISTORY AND PHYSICAL ---
CHIEF COMPLAINT: Near syncope, diarrhea for black stools. HISTORY OF PRESENT ILLNESS: She is an 88-year-old white female who was brought in by family at the request of the home health that she started having 4 loose bowel movements, black stools on blood thinners, and upon standing she is tachycardic, blood pressure 90/60, almost passed out, and she was not able to ambulate in my office, in the wheelchair with previous stroke and basically admitted to the hospital for near-syncope and also workup for syncope and diarrhea. The patient was started on IV fluids, stool cultures for Hemoccult, hold the blood thinners and follow up on the labs. PAST MEDICAL HISTORY: Left-sided breast cancer [address] Mathew, bronchiectasis, diverticulosis, congestive heart failure, EF 55%, depression, L3 compression fracture, acid reflux disease, hypertension, CLL, PAF, peripheral arterial disease, simple renal cyst on the left 6.8 cm, lumbar spondylosis, stroke syndrome with left weakness. PAST SURGICAL HISTORY: Bilateral cataract surgery, breast lumpectomy, appendectomy, hysterectomy. MEDICATIONS: Calcitonin, Pletal 50 mg daily, melatonin, Flovent HFA, losartan 50 mg daily, metoprolol 25 daily, MiraLAX as needed, mirtazapine 7.5 mg at bedtime, Prilosec 20 mg daily, Zoloft 25 daily, Aldactone 25 daily, Xarelto 15 mg daily, Xyzal 5 mg daily, vitamin D 50,000 units once a week. ALLERGIES: Demerol, Levaquin, Phenergan. SOCIAL HISTORY: Living in [place], retired, . No smoking. No alcohol. No drug abuse. FAMILY HISTORY: Father at the age of 72 from emphysema. Mom of old age. HEALTH MAINTENANCE: Flu vaccine was declined. Pneumococcal vaccine in 2014. Colonoscopy in March [address] Dunn. REVIEW OF SYSTEMS: HEENT: No headache. No vision problem. No earache. No sore throat. Neck: No goiter. No lymphadenopathy. No bruit. Cardiopulmonary: No chest pain, shortness of breath, PND, orthopnea. Gastrointestinal: Diarrhea, black melanotic stool. No abdominal pain. Musculoskeletal: No swelling of legs. No joint pain. Neurological Exam: Stable. Weakness on the left side. PHYSICAL EXAMINATION: VITAL SIGNS: Temperature is 97 degrees, pulse is 76. Vitals are stable on supine. HEENT EXAM: Within normal limits. No pallor noted. No jaundice. NECK: Supple. No lymphadenopathy. CHEST: Reveals bilateral air entry. CARDIOVASCULAR: Heart sounds are very distant. Irregular. ABDOMEN: Belly is soft, nontender. Good bowel sounds. NEUROLOGICAL EXAM: Stable. Left hemiparesis defect noted. LABORATORY DATA: CBC: White cell count 12, hematocrit 40, platelets 181,000. PT/INR is normal. Sodium 146, potassium 4.1, chloride 104, BUN 12, creatinine 0.7, glucose 111. LFTs and cardiac enzymes are negative. ProBNP 1343. DIAGNOSTIC DATA: Chest x-ray stable. EKG: Atrial fibrillation, nothing acute. ASSESSMENT AND PLAN: An 88-year-old white female with a known history of chronic atrial fibrillation on Xarelto, came in with diarrhea, black stools, hypotension, tachycardic, near- syncope. Plan is: 1. Rule out gastrointestinal bleeding. 2. Hold the blood pressure medicine. 3. Orthostatic blood pressure. 4. Gentle hydration and stool for occult blood, white cells and continue IV Nexium. 5. We will reconcile home medications and hold all the blood thinners and blood pressure medications. Discussed the plan of care with the family and the Living Will is DNR. cc: Stefano Quintana MD
[2019-02-19] MEDS: NS 1,000 ML IV SCH (01:01)
[2019-02-19 07:54] LABS: BASO% 0.8 % (0.0-0.8); EOS# 0.58 X1000 (0.0-0.7); EOS% 4.6 % (0.0-10.0); HEMATOCRIT 43.2 % (37.0-47.0); HEMOGLOBIN 14.3 g/dL (12.0-16.0); IMM GRAN# 0.03 X1000 (0.0-0.04); IMM GRAN% 0.2 % (0.0-0.5); LYMPH% 61.7 % (20.5-51.1); MCH 31.6 PG (27-31); MCHC 33.1 g/dL (33-37); MCV 95.4 FL (81-99); MONO% 7.9 % (1.7-9.3); MPV 11.4 FL (7.4-10.4); NEUT# 3.13 X1000 (1.4-6.5); NEUT% 24.8 % (42.2-75.2); PLT 158 X1000 (130-400); RBC 4.53 XMIL (4.2-5.4); RDW 13.5 % (11.5-14.5); WBC 12.64 X1000 (4.8-10.8)
[2019-02-19 08:40] LABS: CALCIUM 9.3 mg/dL (8.8-10.2); CREATININE 0.9 mg/dL (0.5-0.9); POTASSIUM 5.3 mmol/L (3.5-5.1)
[2019-02-19] MEDS: FLOVENT 110 MICROGM HFA INH SCH ×2 (08:43→19:45)
[2019-02-19] MEDS: FLAGYL 250 MG/NS 250 MG/50 ML IVPB IV SCH ×2 (09:21→16:59)
[2019-02-19] MEDS: THERA M PLUS PO SCH (09:21)
--- NOTE | 2019-02-19 10:31 | Diag Imaging Result Doc PS360 ---
EXAM: CT ABD/PELVIS W/IV CONT ONLY 02/19/2019 HISTORY: ABD pain TECHNIQUE: This exam was performed using automated exposure control, adjustment of mA or kV according to patient size, and/or use of iterative reconstruction technique. COMMENT: The current study is compared with the previous examination of 03/20/2017. There are bilateral pleural effusions. The volume of pleural fluid has increased since the previous study. There is some compressive atelectasis in the lung bases as well as apparent bronchiectasis in the right middle and lower lobes. The latter finding was also present at the time the previous study. There are atherosclerotic calcifications in the aorta and iliac arteries. The mesenteric and renal arteries appear to be patent. There is dense calcification of the ostium of the left renal artery and there are calcifications and noncalcified plaque with the approximately 50% diameter stenosis in the mid superior mesenteric artery. This was also apparently present on the previous study. The pancreas and spleen are stable in appearance. There is some mild periportal edema. This is worse than on the previous study. The portal vein is patent. There is no evidence of biliary dilatation. There are bilateral renal cysts including a fairly large cyst on the left measuring 5.2 cm in longest dimension. There is no evidence of hydronephrosis. There is apparent left nephrolithiasis. There is extensive diverticulosis in the colon particularly the descending colon. There is no apparent mucosal thickening in the colon and the small bowel is not distended. There is no evidence of significant adenopathy. Pelvis: There has been previous appendectomy. There is severe diverticulosis in the sigmoid colon without evidence of active diverticulitis. There is a fair amount of gas and some fecal debris in the rectum. The urinary bladder is not distended. There is no evidence of free fluid. There has been hysterectomy. There are degenerative changes in the hips particularly the right hip. There is vacuum joint phenomenon in the right sacroiliac joint and at the level of the L5-S1 disc space and L4-5 disc spaces. No evidence of acute bony abnormality is present. IMPRESSION: Bilateral pleural effusions and basilar atelectasis. Nonspecific periportal edema. This can be seen in hepatitis although it is also associated with heart failure and generalized edema. Marked diverticulosis coli. Electronically signed by Gal Fenton 02/19/2019 10:29 AM
[2019-02-19] MEDS ORDERED: NS 1,000 ML IV SCH (11:01)
[2019-02-19] MEDS: NEXIUM IV SCH (14:18)
[2019-02-19] MEDS: LASIX IV SCH (14:19)
[2019-02-19] MEDS: MELATONIN PO PRN (20:18)
[2019-02-19] MEDS: REMERON PO SCH (20:18)
--- NOTE | 2019-02-19 22:43 | PROGRESS NOTE ---
DATE: 02/19/2019 SUBJECTIVE: The patient is slightly orthostatic. She was hard to do the orthostatic because of the left-sided weakness. She now had a black diarrhea. She is feeling dizzy upon standing. Complains of left lower quadrant pain. OBJECTIVE: Vital Signs: Temperature is 98 degrees. Upon standing, blood pressure is 139/79. Chest: Clear. Heart: Irregular heart sounds. Abdomen: Belly is soft. Slightly tender in the left lower quadrant. INVESTIGATIONS: White cell count 12.6, hematocrit 43, platelets 158,000. Sodium 137, potassium 5.3, chloride 104. BUN 10, creatinine 0.9, glucose 83, calcium 9.3. Cardiac enzymes were negative. CT scan of the abdomen and pelvis. Some pleural effusions, nonspecific reported edema, diverticulosis coli. ASSESSMENT AND PLAN: 1. Near syncope due to orthostatic blood pressure. Currently stable. 2. Decrease IV fluids. 3. Lasix 20 mg IV. 4. Hold the blood pressure medications. 5. Left lower quadrant pain. Elevated white cell count. CT was negative for diverticulitis. Currently on Flagyl. 6. Repeat the blood tests and stool samples are waiting. If she is hemodynamically stable, we will slowly restart home medications. 7. Living will DNR 1. Discussed with the family at bedside. LEVEL OF DOCUMENTATION: [25] cc: Stefano Quintana MD MTDD
[2019-02-20] MEDS: FLAGYL 250 MG/NS 250 MG/50 ML IVPB IV SCH ×3 (00:20→17:24)
[2019-02-20 06:59] LABS: BASO# 0.05 X1000 (0.0-0.2); BASO% 0.5 % (0.0-0.8); EOS# 0.33 X1000 (0.0-0.7); EOS% 3.2 % (0.0-10.0); HEMATOCRIT 39.2 % (37.0-47.0); HEMOGLOBIN 13.1 g/dL (12.0-16.0); IMM GRAN# 0.02 X1000 (0.0-0.04); IMM GRAN% 0.2 % (0.0-0.5); LYMPH# 6.55 X1000 (1.2-3.4); LYMPH% 64.3 % (20.5-51.1); MCH 31.8 PG (27-31); MCHC 33.4 g/dL (33-37); MCV 95.1 FL (81-99); MONO# 0.94 X1000 (0.11-0.59); MONO% 9.2 % (1.7-9.3); MPV 10.5 FL (7.4-10.4); NEUT# 2.29 X1000 (1.4-6.5); NEUT% 22.6 % (42.2-75.2); PLT 169 X1000 (130-400); RBC 4.12 XMIL (4.2-5.4); RDW 13.4 % (11.5-14.5); WBC 10.18 X1000 (4.8-10.8)
[2019-02-20 07:09] LABS: AGAP 10; BUN 9 mg/dL (8-22); CALCIUM 9.2 mg/dL (8.8-10.2); CHLORIDE 104 mmol/L (98-107); COSMO 281; CREATININE 0.7 mg/dL (0.5-0.9); ESTIMATED GFR > 60; GLUCOSE 83 mg/dL (70-104); POTASSIUM 3.7 mmol/L (3.5-5.1); SODIUM 142 mmol/L (136-145); TCO2 28 mmol/L (25-35)
[2019-02-20] MEDS: FLOVENT 110 MICROGM HFA INH SCH ×2 (08:47→19:56)
[2019-02-20] MEDS: THERA M PLUS PO SCH (10:10)
[2019-02-20] MEDS: LASIX IV SCH (10:10)
[2019-02-20] MEDS: TOPROL XL PO SCH (10:15)
[2019-02-20] MEDS: KLOR-CON PO SCH (10:15)
[2019-02-20] MEDS: PLETAL PO SCH (10:15)
[2019-02-20] MEDS: SODIUM CHLORIDE 0.9% INJ SCH (17:24)
[2019-02-20] MEDS: PROTONIX IV SCH (17:24)
[2019-02-20] MEDS: REMERON PO SCH (20:34)
[2019-02-20] MEDS: XARELTO PO SCH (20:34)
--- NOTE | 2019-02-20 22:15 | PROGRESS NOTE ---
DATE: 02/20/2019 SUBJECTIVE: The patient is a little better and no signs of GI bleeding noted. OBJECTIVE: Vital signs: Temperature is 97 degrees, standing 98/46 slightly orthostatic. IV fluids were discontinued. HEENT: Within normal limits. Neck: Supple. Chest: Clear. Cardiovascular: Heart sounds are regular. Abdomen: Belly is soft, nontender. INVESTIGATIONS: CBC: White cell count 10, hematocrit 39, platelets 169,000. SMA 7 was normal. ASSESSMENT AND PLAN: 1. Near syncope due to orthostatic hypotension. Discontinue losartan. We will restart on metoprolol. 2. Chronic atrial fibrillation on metoprolol and Xarelto. 3. Left lower quadrant pain, high white cell count. No signs of diverticulitis. Discontinue Flagyl, and if she is hemodynamically stable for the next 24 hours, we will discharge and slowly advance the diet. LEVEL OF DOCUMENTATION: 25 minutes. cc: Stefano Quintana MD
[2019-02-21] MEDS: FLOVENT 110 MICROGM HFA INH SCH ×2 (09:35→19:26)
[2019-02-21] MEDS: LASIX IV SCH (10:16)
[2019-02-21] MEDS: PLETAL PO SCH (10:16)
[2019-02-21] MEDS: TOPROL XL PO SCH (10:16)
[2019-02-21] MEDS: THERA M PLUS PO SCH (10:16)
[2019-02-21] MEDS: MIRALAX PO SCH (12:00)
[2019-02-21] MEDS: MELATONIN PO PRN (20:56)
[2019-02-21] MEDS: REMERON PO SCH (20:56)
[2019-02-21] MEDS: XARELTO PO SCH (20:56)
[2019-02-21] MEDS: PROTONIX IV SCH (20:57)
[2019-02-21] MEDS: SODIUM CHLORIDE 0.9% INJ SCH (20:57)
--- NOTE | 2019-02-21 21:51 | PROGRESS NOTE ---
DATE: 02/21/2019 SUBJECTIVE: The patient is getting better. Advance the diet. The patient is not orthostatic. May stop the Losartan. OBJECTIVE: Vital signs: Temperature is 98 degrees. Vitals are stable. Blood pressure is around standing 98/56. HEENT Exam: Within normal limits. Neck: Supple. Chest: Clear. Cardiovascular: Heart sounds are regular. Abdomen: Belly is soft, nontender. Good bowel sounds. Neurological: No neurological deficits. INVESTIGATIONS: Yesterday were stable. ASSESSMENT AND PLAN: 1. There are no signs of active gastrointestinal bleeding noted. 2. Hypertension. Discontinue IV fluids. Continue to monitor orthostatic blood pressure. Discontinue losartan, restarted on medicine metoprolol and Xarelto. If she is stable next 24 hours, could be discharged. LEVEL OF DOCUMENTATION: 25 minutes. cc: Stefano Quintana MD
[2019-02-22 07:30] VITALS: BP 90/59
[2019-02-22] MEDS: LASIX IV SCH (08:11)
[2019-02-22] MEDS: PLETAL PO SCH (08:11)
[2019-02-22] MEDS: KLOR-CON PO SCH (08:11)
[2019-02-22] MEDS: MIRALAX PO SCH (08:11)
[2019-02-22] MEDS: TOPROL XL PO SCH (08:11)
[2019-02-22] MEDS: THERA M PLUS PO SCH (08:11)
[2019-02-22] MEDS: FLOVENT 110 MICROGM HFA INH SCH (08:50)
--- NOTE | 2019-02-23 22:25 | DISCHARGE SUMMARY ---
ADMISSION DATE: 02/18/2019 DISCHARGE DATE: 02/22/2019 DISCHARGING DIAGNOSES: 1. Near syncope due to orthostatic hypotension. 2. Diarrhea, resolved. 3. Left lower quadrant pain, resolved. 4. Diverticulosis. 5. History of left-sided breast cancer, stable. 6. Bronchiectasis, stable. 7. History of congestive heart failure, diastolic, EF 58%. 8. L3 compression fracture. 9. Depression. 10. Acid reflux disease. 11. CLL. 12. PAF. 13. Peripheral arterial disease. 14. Simple renal cyst on the left 6.8 cm. 15. Lumbar spinal spondylosis. 16. Right-sided stroke with left-sided hemiparesis. BRIEF HISTORY: Please see the H and P that was done on 02/18/2019. In brief, she is an 88-year- old white female basically admitted to the hospital from my office at the request of the Home Health. The patient has near syncope, dizziness in the morning after coming back to the bathroom. She has loose bowel movements with black in appearance. Blood pressure upon standing 90/60. She also has left lower quadrant pain and elevated white cell count. In light of stroke on the left side with comorbid conditions, she was admitted to the hospital for observation. HOSPITAL COURSE: I did stop the anticoagulation, Xarelto, losartan, metoprolol. The patient's blood pressure was dropping. She was given gentle IV fluids. CT scan of the abdomen and pelvis did not show any evidence of diverticulitis. There was no signs of active GI bleeding noted. The patient was advised to stop the losartan and continue to monitor blood pressure. Follow up hematocrit was stable. LABS: At the time of discharge as follows: CBC: White cell count 10, hematocrit 39, platelet 169,000. Sodium 142, potassium 3.7, chloride 104, BUN 9, creatinine 0.7, glucose 83. Cardiac enzymes were negative. ProBNP 1340. CT scan of the abdomen and pelvis: Findings are previous appendectomy, severe diverticulosis without any evidence of active diverticulitis, and the bladder was not distended. DJD changes particularly in the right hip. Bilateral venous cysts, fairly large on the left side. EKG: The patient is in atrial fibrillation, rate well controlled. DISCHARGE INSTRUCTIONS: 1. Chronic atrial fibrillation. Rate is well controlled. In light of previous stroke, continue on metoprolol-XL 50 mg daily. 2. Xarelto 50 mg daily. 3. Zoloft 25 daily. 4. Remeron 7.5 at bedtime. 5. Prilosec 20 daily. 6. Aldactone was discontinued. 7. The losartan was discontinued due to low blood pressure. 8. Flovent 1 puff b.i.d. 9. Vitamin D3 50,000 units once a week. 10. Folic acid 1 tablet daily. 11. Xyzal 5 mg daily. 12. Potassium 10 mEq every other day. 13. Continue outpatient monitoring of the blood pressure. Follow up in my office in 2 weeks. cc: Stefano Quintana MD
== END 2019-02-22 09:37 | disposition home health service (06) | DRG 312 ==
LOC: DIRADM 12:05 → 3N 12:43
PROVIDERS: ADMIT Internal Medicine; ATTEND Internal Medicine